=== PATIENT | female | born 1970 | race Caucasian/White ===

== ENCOUNTER 2016-11-19 07:43 | Inpatient (IN) ==
[2016-11-19] MEDS ORDERED: ATROVENT NEB INH ONE (08:21)
[2016-11-19] MEDS ORDERED: ALBUTEROL NEB INH ONE (08:21)
[2016-11-19] MEDS ORDERED: SOLU-MEDROL IV ONE (08:21)
[2016-11-19] MEDS ORDERED: DECADRON MISC ONE (08:21)
[2016-11-19 08:47] LABS: MANUAL DIFF NEEDED? NO
--- NOTE | 2016-11-19 08:49 | Diag Imaging Result Document ---
PROCEDURE NAME: CHEST-2 VIEWS - 11/19/2016 CHEST, TWO VIEWS: INDICATION: Cough. FINDINGS: There is cardiomegaly. The pulmonary vasculature is not congested. No infiltrates or effusions are identified. IMPRESSION: Cardiomegaly.
[2016-11-19 08:50] LABS: BASO% 0.6 % (0.0-0.8); EOS# 0.84 X1000 (0.0-0.7); EOS% 7.5 % (0.0-10.0); HEMATOCRIT 39.1 % (37.0-47.0); HEMOGLOBIN 12.9 g/dL (12.0-16.0); IMM GRAN# 0.07 X1000 (0.0-0.04); IMM GRAN% 0.6 % (0.0-0.5); LYMPH# 3.18 X1000 (1.2-3.4); LYMPH% 28.3 % (20.5-51.1); MCH 30.1 PG (27-31); MCV 91.1 FL (81-99); MONO# 0.72 X1000 (0.11-0.59); MONO% 6.4 % (1.7-9.3); MPV 9.8 FL (7.4-10.4); NEUT% 56.6 % (42.2-75.2); PLT 308 X1000 (130-400); RBC 4.29 XMIL (4.2-5.4)
[2016-11-19 08:53] LABS: BE 0.6 mmoll (-3.0-3.0); BLOOD TYPE ARTERIAL; O2(CT) 17.2 mL/dL (15.0-23.0); PCO2(98.6) 36 mmHg (35-45); PO2(98.6) 56 mmHg (60-100); SAMPLE BLOOD; THB 13.7 g/dL (11.5-17.4); pH(98.6) 7.44 (7.35-7.45)
--- NOTE | 2016-11-19 09:02 | PROVIDER DOCUMENTATION ---
HPI-Respiratory General - General Chief Complaint: Shortness of Breath Stated Complaint: ASTHMA SX Time Seen by Provider: 11/19/16 07:53 Source: patient Allergies/Adverse Reactions: Patient Allergies Allergy/AdvReac Type Severity Reaction Status Date / Time codeine Allergy ITCHING Verified 09/02/16 03:04 latex Allergy HIVES Verified 10/14/16 20:44 meperidine HCl * AdvReac Severe ANAPHYLAXIS Verified 09/02/16 03:04 [From Demerol] Home Medications: Home Medication List Medication Instructions Recorded Confirmed Last Taken Type LISINOpril [Prinivil] 20 mg PO QHS 04/10/13 09/03/16 09/01/16 20:00 History Metformin HCl [Metformin HCl ER] 1,000 mg PO BID 04/10/13 09/03/16 09/01/16 20: 00 History Multivitamin [Multivitamins] 1 each PO DAILY 04/10/13 09/03/16 09/01/16 08:00 History PRAVAstatin [Pravachol] 40 mg PO QHS 04/10/13 09/03/16 09/01/16 21:00 History Gabapentin 600 mg PO QHS 09/02/16 09/03/16 09/01/16 20:00 History Insulin Glargine [Lantus] 45 units SQ QHS 09/02/16 09/03/16 09/01/16 20:00 History Iron,Carbonyl [Iron] 46 mg PO DAILY 09/02/16 09/03/16 09/01/16 08:00 History Liothyronine [Cytomel] 15 mcg PO DAILY 09/02/16 09/03/16 09/01/16 20:00 History Magnesium Citrate 400 mg PO BID 09/02/16 09/03/16 09/01/16 20:00 History Albuterol Sulfate [Proair Hfa] 1 puff IH Q8H PRN 09/03/16 09/03/16 09/02/16 13: 00 History Cholecalciferol (Vitamin D3) 2,000 unit PO BID 09/03/16 09/03/16 09/01/16 13:00 History [Vitamin D3] Ibuprofen/Hydrocodone [Vicoprofen 1 each PO TID #20 tablet 09/03/16 Unknown Rx 200/7.5 mg] Levothyroxine Sodium [Synthroid] 300 mcg PO DAILY 09/03/16 09/03/16 09/01/16 06: 00 History Vitamin B Complex 1 each PO DAILY 09/03/16 09/03/16 09/01/16 13:00 History Cyclobenzaprine [Flexeril] 10 mg PO TID #20 tablet 10/14/16 Unknown Rx Ibuprofen [Motrin] 800 mg PO Q8H PRN PRN #20 tablet 10/14/16 Unknown Rx Omeprazole 20 mg PO DAILY #20 tablet. 10/14/16 Unknown Rx - History of Present Illness-Resp Nature of Presenting Problem: Pt is 46 y/o F presents to the ED with SOB. Pt states the SOB started this am. Pt states hx of asthma. Pt states mild cough and body aches. Pt denies home oxygen. Quality of Pain: reports: aching Severity in ED: reports: mild Onset/Duration: reports: this morning Timing: reports: still present, intermittent Exposure: reports: unknown cause Cough Quality/Degree: reports: mild, dry cough Episode Frequency: frequent episodes Current Respiratory Medication Therapy: Initiated see nurses note Modifying Factors: improves with: nothing Associated Symptoms: reports: cough, muscle/bodyaches (bodyaches), shortness of breath, wheezing Similar Symptoms Previously?: Yes Recently seen or treated by another doctor?: No Review of Systems - Adult - REVIEW OF SYSTEMS - ADULT Constitutional: denies: chills, fever Eyes: denies: blurred vision, double vision Ears, Nose, Mouth & Throat: denies: ear pain, nose pain, throat pain Cardiovascular: reports: irregular heart rate (tachy). denies: chest pain, heart murmur Respiratory: reports: cough, shortness of breath, wheezing Gastrointestinal: denies: abdominal pain, diarrhea, nausea, vomiting Genitourinary: denies: dysuria, hematuria Musculoskeletal: denies: bone pain, joint pain, neck pain Integumentary: denies: hives, itching Neurological: denies: dizziness/vertigo, headache/migraines Psychiatric: denies: anxiety, depression Endocrine: reports: no symptoms reported Hematologic/Lymphatic: reports: no symptoms reported Allergic/Immunologic: reports: no symptoms reported All Other Systems: Reviewed and Negative Past History - Adult - PAST MEDICAL HISTORY-ADULT Review of Records: reports: Nursing Assessment Review, Medications Reviewed, Social history reviewed & non-contributory. Major Childhood Illnesses: reports: denies history Cardiovascular: reports: HTN, hyperlipidemia Respiratory: reports: asthma, sleep apnea Gastrointestinal: reports: GERD Obstetrical/Gynecological: reports: denies history Genitourinary: reports: denies history Musculoskeletal: reports: denies history Neurological: reports: denies history Endocrine/Immune: reports: Diabetes, thyroid disorder Other Conditions: reports: denies history - PRIOR SURGERIES/PROCEDURES Surgical/Procedure History: reports: appendectomy, cholecystectomy, BTL, C- section - IMMUNIZATION STATUS Childhood Immunizations: See Nurse Assessment Flu Vaccine: See Nurse Assessment - FAMILY HISTORY Family History: reviewed, not pertinent - SOCIAL HISTORY Smoking: denies Substance Use: denies Living Situation: family Physical Exam-General - PHYSICAL EXAM-ADULT Initial Vital Signs Reviewed: Yes - CONSTITUTIONAL General Appearance: appears well, alert, no apparent distress - EYES Eyes: PERRL/EOMI, pink conjunctivae, fundi clear, no AV nicking - HEAD, EARS, NOSE, MOUTH & THROAT HENMT: normocephalic/atraumatic, moist mucous membranes, normal ENT inspection, TMs normal, pharynx normal - NECK Neck: non-tender, full range of motion, supple, normal inspection - RESPIRATORY Respiratory: chest non-tender, no pleuratic chest pain, no respiratory distress , no accessory muscle use, decreased breath sounds, wheezing - CARDIOVASCULAR Cardiovascular: normal peripheral pulses, no edema, no gallop, no JVD, no murmur , tachycardia - GASTROINTESTINAL (ABDOMEN) Abdominal Exam: normal bowel sounds, non tender, soft, no organomegaly, no pulsatile mass - LYMPHATIC Lymphatic: no adenopathy - MUSCULOSKELETAL Back Exam: normal inspection, no CVA tenderness, no vertebral tenderness Extremity: normal range of motion, non-tender, normal gait, normal inspection, no pedal edema, no calf tenderness, normal capillary refill, pelvis stable - SKIN Integumentary: normal color, normal turgor, warm/dry - NEUROLOGIC Neurologic: photograph developer II-XII nml as tested, grossly normal, no motor/sensory deficits - PSYCHIATRIC Psych/Mental Status: normal mood/affect, normal thought content, normal thought process, oriented x 3 Progress - PLAN OF CARE/RESULTS Progress/Plan/Lab Results: Laboratory Tests 11/19/16 11/19/16 11/19/16 07:50 08:37 08:40 WBC RBC Hgb Hct MCV MCH MCHC RDW Std Deviation Plt Count MPV Immature Gran % (Auto) Neut % (Auto) Lymph % (Auto) [place] % (Auto) Eos % (Auto) Baso % (Auto) Immature Gran # (Auto) Neut # (Auto) Lymph # (Auto) [place] # (Auto) Eos # (Auto) Baso # (Auto) PT INR APTT (Factor Assay) D-Dimer Specimen Type ARTERIAL Sample Site R RADIAL pH 7.44 pCO2 36 pO2 56 L HCO3 25.2 Base Excess 0.6 Oxyhemoglobin 89.5 L* ABG O2 Sat (Calculated) 17.2 ABG O2 Saturation 92.0 L ABG Carboxyhemoglobin 1.80 ABG Methemoglobin 1.0 Julien Test YES A-a O2 Difference 49.0 Total Hemoglobin 13.7 Lactate 3.10 H Blood Gas Modality ROOM AIR FiO2 % 21.0 Sodium 133 L Potassium 3.9 Chloride 95 L Carbon Dioxide 24 L Anion Gap 14 BUN 10 Creatinine 0.7 Estimated GFR/1.73 m2 > 60 BUN/Creatinine Ratio 14 Glucose 269 H Calculated Osmolality 275 Calcium 9.5 Magnesium 1.8 Total Bilirubin 0.30 AST 14 ALT 19 Alkaline Phosphatase 68 Creatine Kinase 79 Total Protein 7.1 Albumin 3.8 Globulin 3.0 Albumin/Globulin Ratio 1.0 Influenza A (Rapid) NEGATIVE Influenza B (Rapid) NEGATIVE 11/19/16 11/19/16 08:40 08:40 WBC 11.24 H RBC 4.29 Hgb 12.9 Hct 39.1 MCV 91.1 MCH 30.1 MCHC 33.0 RDW Std Deviation 13.2 Plt Count 308 MPV 9.8 Immature Gran % (Auto) 0.6 H Neut % (Auto) 56.6 Lymph % (Auto) 28.3 [place] % (Auto) 6.4 Eos % (Auto) 7.5 Baso % (Auto) 0.6 Immature Gran # (Auto) 0.07 H Neut # (Auto) 6.36 Lymph # (Auto) 3.18 [place] # (Auto) 0.72 H Eos # (Auto) 0.84 H Baso # (Auto) 0.07 PT 12.8 INR 0.93 APTT (Factor Assay) 26.8 D-Dimer < 0.22 L Specimen Type Sample Site pH pCO2 pO2 HCO3 Base Excess Oxyhemoglobin ABG O2 Sat (Calculated) ABG O2 Saturation ABG Carboxyhemoglobin ABG Methemoglobin Julien Test A-a O2 Difference Total Hemoglobin Lactate Blood Gas Modality FiO2 % Sodium Potassium Chloride Carbon Dioxide Anion Gap BUN Creatinine Estimated GFR/1.73 m2 BUN/Creatinine Ratio Glucose Calculated Osmolality Calcium Magnesium Total Bilirubin AST ALT Alkaline Phosphatase Creatine Kinase Total Protein Albumin Globulin Albumin/Globulin Ratio Influenza A (Rapid) Influenza B (Rapid) Orders Category Date Time Status Cardiac Monitoring DIRECTED Care 11/19/16 08:21 Active Oxygen Therapy- ED Nursing DIRECTED Care 11/19/16 08:21 Active Saline Loc NOW Care 11/19/16 08:21 Active CHEST-2 VIEWS [RAD] Stat Exams 11/19/16 07:54 Draft ABG [RESP] Routine Lab 11/19/16 08:37 Completed BLOOD CULTURE [BLDCUL] Stat Lab 11/19/16 08:21 Ordered CBC WITH ELECTRONIC DIFF [HEME] Stat Lab 11/19/16 08:40 Completed CK PROFILE [SP CHEM] Stat Lab 11/19/16 08:40 Completed COMPREHENSIVE METABOLIC PANEL [CHEM] Stat Lab 11/19/16 08:[address] D-D[address]ER [address] [COAG] Stat Lab 11/19/16 08:[address] Stat Lab 11/19/16 07:50 Completed LACTATE, PLASMA [CHEM] Stat Lab 11/19/16 08:40 Received MAGNESIUM [CHEM] Stat Lab 11/19/16 08:40 Completed PRO B-NATRIURETIC PEPTIDE Stat Lab 11/19/16 08:40 Received PROTIME WITH INR PL [COAG] Stat Lab 11/19/16 08:[address] [COAG] Stat Lab 11/19/16 08:40 Completed TROPONIN T Stat Lab 11/19/16 08:40 Received Albuterol Neb Med 11/19/16 08:21 Discontinued 2.5 mg INH NOW ONE Dexamethasone [Decadron] Med 11/19/16 08:21 Discontinued 4 mg MISC NOW ONE Ipratropium [place] Neb [Atrovent Neb] Med 11/19/16 08:21 Discontinued 0.5 mg INH NOW ONE Methylprednisolone Sod Succ [Solu-Medrol] Med 11/19/16 08:21 Discontinued 125 mg IV NOW ONE Aerosol Treatments Routine Oth 11/19/16 08:23 Completed Aerosol Treatments Stat Oth 11/19/16 08:23 Completed Vital Signs - 24 hr 11/19/16 11/19/16 07:45 09:06 Temperature 98 F Pulse Rate 108 H 106 H Respiratory 22 22 Rate Blood Pressure 171/90 O2 Sat by Pulse 94 L 92 L Oximetry - XRAY 1 XRAY: Bilateral XRAY Study: Chest Impression: Abnormal XRAY Interpretation: CM - CONSULTS/PCP/HOSPITALIST Notification #1 *Consult/PCP/Hospitalist*: Dr. Melgoza Time Discussed: 10:35 (Dr. Melgoza accepted admit ) Reason/Comments: Dr. Cuba consults with Dr. Melgoza about admit of Pt Consult Disposition: Admit Departure - Departure Time of Disposition Order: 10:17 DIAGNOSIS: COPD exacerbation, Hypoxia Disposition: ADMITTED INPATIENT 09 Certified Medical Emergency: Emergent Condition: Stable Additional Instructions: ED Follow Up Instructions: You have been treated by a care provider in the Emergency Department. These instructions are being provided to you so you can have an understanding of how to care for yourself upon discharge. Upon discharge from the Emergency Department, you are responsible for making arrangements for follow-up care by a physician of your choice. Take all prescribed medications as directed. Return to the Emergency Department immediately for any new or worsening symptoms. You may call the Physician Referral phone number at [phone] to obtain a list of Physicians who are taking new patients. Referrals: aLshay Mann MD [Primary Care Provider] - Attestation - Scribe Verification/Attestation Scribe:: Ananya Fair Acting as Scribe for:: Yael Cuba Scribe documention review:: This chart was documented by a scribe and accurately reflects the service the provider performed and the decisions made by the provider.
[2016-11-19 09:04] LABS: ALLEN TEST YES; DRAW SITE R RADIAL; MODALITY ROOM AIR
[2016-11-19 09:07] LABS: INR 0.93 (0.86-1.15); PROTIME 12.8 Seconds (12.1-15.5)
[2016-11-19 09:08] LABS: PTT PL 26.8 Seconds (22.6-43.9)
[2016-11-19 09:13] LABS: AGAP 14; ALBUMIN 3.8 g/dL (3.5-5.0); ALKALINE PHOSPHATASE 68 U/L (32-104); BUN 10 mg/dL (8-22); CALCIUM 9.5 mg/dL (8.8-10.2); CHLORIDE 95 mmol/L (98-107); CK PROFILE 79 U/L (24-173); COSMO 275; GOT 14 U/L (10-30); GPT 19 U/L (10-36); MAGNESIUM 1.8 mg/dL (1.5-2.7); POTASSIUM 3.9 mmol/L (3.5-5.1); SODIUM 133 mmol/L (136-145); TCO2 24 mmol/L (25-35); TOTAL PROTEIN 7.1 g/dL (6.3-8.3)
[2016-11-19] MEDS ORDERED: NORCO-7.5 PO ONE (10:13)
[2016-11-19] MEDS ORDERED: LEVAQUIN 750 MG/D5W 150 ML IV ONE ×2 (10:16→10:47)
[2016-11-19] MEDS ORDERED: LEVAQUIN 750 MG in NS 150 ML IV ONE (11:00)
[2016-11-19] MEDS ORDERED: ZOFRAN IV PRN (16:10)
[2016-11-19] MEDS ORDERED: DUONEB (A & A) INH PRN (16:41)
[2016-11-19] MEDS ORDERED: SOLU-MEDROL IV SCH (17:00)
[2016-11-19] MEDS: DUONEB (A & A) INH SCH ×2 (18:33→22:53)
--- NOTE | 2016-11-19 20:06 | HISTORY AND PHYSICAL ---
CHIEF COMPLAINT: Shortness of breath. HISTORY OF PRESENT ILLNESS: This is a 46-year-old female with diabetes and asthma presenting with progressive shortness of breath over the last 24-48 hours, with worsening shortness of breath this morning. She has also had a productive cough which has been very irritating and affecting her breathing. Patient reports awaking from sleep this a.m. due to shortness of breath. Patient was given Levaquin 750, [place], albuterol, Atrovent and Solu-Medrol in the ER, and has clinically improved. PROBLEM LIST: 1. She reports having flu-like symptoms about 3 weeks ago. 2. She has chest pain and difficulty with cough since she has been here. 3. Admitted for asthma exacerbation. PAST MEDICAL HISTORY: 1. Asthma. 2. Thyroid cancer. 3. Type 2 diabetes but she is insulin dependent. 4. Hypothyroidism. 5. Hypertension. 6. Dyslipidemia. 7. Hypoparathyroidism. PAST SURGICAL HISTORY: 1. Appendectomy. 2. Cholecystectomy. 3. . 4. Tubal ligation. SOCIAL HISTORY: No smoking, no ethanol, no drugs. FAMILY HISTORY: Heart disease. Cancer in her mother. ALLERGIES: Codeine, latex and Demerol. REVIEW OF SYSTEMS: Otherwise negative times 10 point review of systems. MEDICATION LIST: Being compiled. She is on Lantus 45 units daily. PHYSICAL EXAMINATION: VITAL SIGNS: Blood pressure 156/90, heart rate of 109, respiratory rate of 20, temp 98.2 degrees. GENERAL: Obese female, in no acute distress. HEAD EXAMINATION: Normocephalic, atraumatic. EYE EXAMINATION: Pupils equal, round, reactive to light. Extraocular movements were intact. EAR/NOSE/THROAT EXAMINATION: She had moist mucous membranes. NECK: Supple. CARDIOVASCULAR EXAMINATION: Regular rate and rhythm. PULMONARY: Occasional wheezing but good air movement throughout. GASTROINTESTINAL: Soft, nontender, nondistended. Bowel sounds are positive. EXTREMITIES: No clubbing or cyanosis. LYMPHATICS: No peripheral edema. NEUROLOGICAL EXAMINATION: Nonfocal. LABORATORY DATA: Chest x-ray was unremarkable. White count 11. Chemistry unremarkable except sugars have been 269 to 311 to 454. Blood gas . Flu was negative. PROBLEM LIST: 1. Asthma exacerbation. We will continue empiric antibiotics, steroids, breathing treatments and follow. 2. Diabetes. We will continue her regular medications and monitor. 3. Obesity. Aware of current issues. 4. Hypertension. Continue regular medications. DISPOSITION: I would anticipate discharge in 2 days.
[2016-11-19] MEDS ORDERED: LANTUS INSULIN (PARKWAY) SUBQ SCH (21:00)
[2016-11-19] MEDS: LOVENOX SUBQ SCH (21:54)
[2016-11-19] MEDS: TUSSIONEX LIQUID PO SCH (21:55)
[2016-11-19] MEDS: HUMULIN R (PARKWAY) SUBQ SCH (21:55)
[2016-11-19] MEDS: TYLENOL PO PRN (23:47)
[2016-11-20] MEDS: SOLU-MEDROL IV SCH ×3 (01:01→21:18)
[2016-11-20] MEDS: DUONEB (A & A) INH SCH ×6 (04:35→23:45)
[2016-11-20] MEDS: PRILOSEC PO SCH (06:02)
[2016-11-20] MEDS: HUMULIN R (PARKWAY) SUBQ SCH ×4 (06:03→21:18)
[2016-11-20 06:10] LABS: HEMATOCRIT 40.1 % (37.0-47.0); HEMOGLOBIN 13.1 g/dL (12.0-16.0); MCH 29.4 PG (27-31); MCHC 32.7 g/dL (33-37); MCV 89.9 FL (81-99); MPV 10.5 FL (7.4-10.4); RBC 4.46 XMIL (4.2-5.4)
[2016-11-20 06:37] LABS: AGAP 14; BUN 14 mg/dL (8-22); CALCIUM 10.8 mg/dL (8.8-10.2); CHLORIDE 98 mmol/L (98-107); COSMO 285; HEMOGLOBIN A1C 8.5 % (4.8-6.0); POTASSIUM 4.8 mmol/L (3.5-5.1); SODIUM 135 mmol/L (136-145); TCO2 23 mmol/L (25-35)
[2016-11-20] MEDS ORDERED: PNEUMOVAX 23 IM ONE (09:00)
[2016-11-20] MEDS ORDERED: FLUZONE QUAD 2016-2017 SYRINGE IM ONE (09:00)
[2016-11-20] MEDS: TUSSIONEX LIQUID PO SCH ×2 (10:18→21:18)
[2016-11-20] MEDS: LEVAQUIN 750 MG in NS 150 ML IV SCH (10:22)
--- NOTE | 2016-11-20 15:07 | PROGRESS NOTE ---
DATE: 11/20/2016 SUBJECTIVE: The patient has no focal complaints. Breathing is improved. OBJECTIVE: Vital Signs: Blood pressure 139/89, heart rate of 87, respiratory rate 18, temperature 97.5 degrees, satting 97% on 2 L. Cardiovascular: Regular rate and rhythm. Pulmonary: Bilateral breath sounds. Clear to auscultation. GI: Soft, nontender, nondistended. Bowel sounds are positive. LABORATORY DATA: White count 11.5, hemoglobin and hematocrit 13 and 40. Platelets 345. Chemistries look okay. Sugars are still up from 276 up to 457. A1c is 8.5. PROBLEM LIST: 1. Asthma exacerbation. She is currently on steroids, antibiotics and breathing treatments, and seems to be doing fairly well. I think I am going to decrease her steroids because of her relative hyperglycemia and follow clinically. I think she has improved. Probably anticipate discharge tomorrow barring any major issues. 2. Diabetes, not well controlled, but we are decreasing steroids. We have gone up on her Lantus. Will follow. DISPOSITION: As described. Home tomorrow if stable.
[2016-11-20] MEDS ORDERED: HUMULIN R IV ONE (16:01)
[2016-11-20] MEDS ORDERED: HUMULIN R (PARKWAY) IV ONE (16:30)
[2016-11-20] MEDS: TYLENOL PO PRN (18:25)
[2016-11-20] MEDS: LANTUS INSULIN (PARKWAY) SUBQ SCH ×2 (18:25→20:01)
[2016-11-20] MEDS: TESSALON PO PRN (19:12)
[2016-11-20] MEDS: LOVENOX SUBQ SCH (21:18)
[2016-11-21] MEDS: DUONEB (A & A) INH SCH ×6 (03:35→23:23)
[2016-11-21] MEDS: PRILOSEC PO SCH (06:33)
[2016-11-21 06:46] LABS: HEMATOCRIT 37.3 % (37.0-47.0); HEMOGLOBIN 11.9 g/dL (12.0-16.0); MCH 29.6 PG (27-31); MCHC 31.9 g/dL (33-37); MCV 92.8 FL (81-99); RBC 4.02 XMIL (4.2-5.4)
[2016-11-21 06:47] LABS: AGAP 15; BUN 25 mg/dL (8-22); CALCIUM 9.6 mg/dL (8.8-10.2); CHLORIDE 98 mmol/L (98-107); COSMO 295; POTASSIUM 4.9 mmol/L (3.5-5.1); SODIUM 135 mmol/L (136-145); TCO2 22 mmol/L (25-35)
[2016-11-21] MEDS: HUMULIN R (PARKWAY) SUBQ SCH ×2 (07:01→19:38)
[2016-11-21] MEDS: TESSALON PO PRN (08:12)
[2016-11-21] MEDS: TUSSIONEX LIQUID PO SCH ×2 (09:26→20:34)
[2016-11-21] MEDS: SOLU-MEDROL IV SCH (09:27)
[2016-11-21] MEDS: LEVAQUIN 750 MG in NS 150 ML IV SCH (10:03)
--- NOTE | 2016-11-21 16:21 | PROGRESS NOTE ---
DATE: 11/21/2016 SUBJECTIVE: Patient has no focal complaints. Her coughing has improved, breathing has improved. OBJECTIVE: Vital Signs: Blood pressure 124/64, heart rate of 102, respiratory rate 20, Temperature 98.3 degrees, 96% on 1 L. Cardiovascular: Regular rate and rhythm. Pulmonary: Bilateral breath sounds. Clear to auscultation. GI: Soft, nontender, nondistended. Bowel sounds are positive. LABORATORY DATA: White count is 13 today, hemoglobin and hematocrit 11 and 37, platelets of 335,000. Chemistries: Blood sugar is still very high, 282 up to 472. PROBLEM LIST: 1. Asthma exacerbation. I am going to stop her steroids, continue breathing treatments, and follow clinically. Her wheezing has essentially resolved. We will continue treatment and follow. 2. Diabetes, uncontrolled. Will go up on her Lantus to 80 at bedtime, continue her sliding scale insulin, and follow. 3. Hypertension. Appears to be stable. Continue regular medication. DISPOSITION: From a respiratory standpoint, I think she could probably go tomorrow, but her breathing treatments we will continue to follow and possibly discharge soon.
[2016-11-21] MEDS: HUMALOG DOSE (PARKWAY) SUBQ SCH ×2 (18:25→20:44)
[2016-11-21] MEDS ORDERED: NS 500 ML IV SCH (19:15)
[2016-11-21] MEDS: LOVENOX SUBQ SCH (20:34)
[2016-11-21] MEDS ORDERED: LANTUS INSULIN (PARKWAY) SUBQ SCH (21:00)
[2016-11-22] MEDS: DUONEB (A & A) INH SCH ×4 (03:23→17:43)
[2016-11-22] MEDS: PRILOSEC PO SCH (06:02)
[2016-11-22] MEDS: HUMALOG DOSE (PARKWAY) SUBQ SCH ×2 (06:03→13:07)
[2016-11-22 06:38] LABS: HEMATOCRIT 38.7 % (37.0-47.0); HEMOGLOBIN 12.3 g/dL (12.0-16.0); MCH 29.6 PG (27-31); MCHC 31.8 g/dL (33-37); MCV 93.3 FL (81-99); MPV 10.3 FL (7.4-10.4); RBC 4.15 XMIL (4.2-5.4)
[2016-11-22 06:58] LABS: AGAP 14; BUN 21 mg/dL (8-22); CALCIUM 9.3 mg/dL (8.8-10.2); CHLORIDE 100 mmol/L (98-107); COSMO 286; POTASSIUM 3.6 mmol/L (3.5-5.1); SODIUM 140 mmol/L (136-145); TCO2 26 mmol/L (25-35)
[2016-11-22] MEDS: TUSSIONEX LIQUID PO SCH (08:48)
[2016-11-22] MEDS: LEVAQUIN 750 MG in NS 150 ML IV SCH (13:14)
[2016-11-22] MEDS ORDERED: LEVAQUIN PO ONE (16:10)
[2016-11-22 16:54] VITALS: BP 154/82
--- NOTE | 2016-11-22 18:28 | DISCHARGE SUMMARY ---
ADMISSION DATE: 11/19/2016 DISCHARGE DATE: 11/22/2016 DISCHARGE DIAGNOSES: 1. Asthma exacerbation. 2. Profound hypothyroidism with poor compliance on Synthroid. 3. History of thyroid cancer interestingly enough. 4. Diabetes. 5. Obesity. HOSPITAL COURSE: Briefly this is a 46-year-old female, please note H and P on admission, coming in with shortness of breath and cough. Chest x-ray was clear. She was asthmatic and bronchospastic. She was placed on IV steroids, antibiotics in the form of Levaquin, breathing treatments and steadily clinically improved, we were able to wean her off oxygen. She had profound hyperglycemia with blood sugars 200-400 so once her wheezing had resolved which was by day 2 we stopped her steroids. White count peaked at 13,000, is 11.7 at discharge. Of note her TSH is 47 but the nurse who evaluated her home medications found out that she had not filled her Synthroid since May of last year so I do not think she has been taking it and not been compliant with it. She is on a 300 mcg dose but she has not been compliant with the medication reportedly due to cost. We informed her her metformin and Pravachol, lisinopril, gabapentin, all those were on the 4 dollar list at [facility]. Lisinopril and metformin are free at [facility]. Synthroid is also a 4 dollar medication at [facility]. In any case patient is stable. She stabilized by the day of discharge, no wheezing. She was breathing comfortably on room air. No fevers so I felt stable for discharge on the 4th. DISCHARGE MEDICATIONS: Metformin 1 g b.i.d., multivitamin 1 daily, Pravachol 40 daily, lisinopril 20 daily, ProAir, vitamin D3, gabapentin 600 at bedtime, magnesium citrate 400 b.i.d., vitamin B complex daily, Icar-C 60 daily or Carbonyl iron 60 daily, Lantus was increased to 65 units daily, Levaquin 500 daily for 7 days and Synthroid was dropped to 250 because I do not think she has been compliant with her medications. DISCHARGE CONDITION: Stable. 32-minute discharge. She was to return for worsening shortness of breath. She will need follow up TFTs (thyroid function tests) in 4-6 weeks.
== END 2016-11-22 17:59 | disposition home or self-care (01) | DRG 203 ==
LOC: P.ED 07:43 → P.EDIPHOLD 07:44 → P.MEDSURG 07:44
PROVIDERS: ATTEND Internal Medicine
DX: J45.901 Unspecified asthma with (acute) exacerbation (principal); E11.42 Type 2 diabetes mellitus with diabetic polyneuropathy; E11.65 Type 2 diabetes mellitus with hyperglycemia; I10 Essential (primary) hypertension; E03.9 Hypothyroidism, unspecified; T38.1X6A Underdosing of thyroid hormones and substitutes, initial encounter; Z91.120 Patient's intentional underdosing of medication regimen due to financial hardship; Z85.850 Personal history of malignant neoplasm of thyroid; Z79.4 Long term (current) use of insulin; E20.9 Hypoparathyroidism, unspecified; Z80.9 Family history of malignant neoplasm, unspecified; E66.9 Obesity, unspecified; E78.00 Pure hypercholesterolemia, unspecified; R09.02 Hypoxemia
CPT/HCPCS: 36415; 71020; 80048; 80053; 82550; 82805; 82948; 83036; 83605; 83735; 83880; 84439; 84443; 84484; 85025; 85027; 85379; 85610; 85730; 87040; 87070; 87205; 87804; 94640; 94761; 96365; 96366; 96375; J1100; J1650; J1815; J2920; J2930; J7040

== ENCOUNTER 2016-12-09 15:27 | Emergency (ER) ==
[2016-12-09] MEDS ORDERED: TESSALON PO ONE (16:21)
[2016-12-09] MEDS ORDERED: DUONEB (A & A) INH ONE (16:21)
[2016-12-09 17:00] LABS: MANUAL DIFF NEEDED? NO
--- NOTE | 2016-12-09 17:05 | Diag Imaging Result Document ---
PROCEDURE NAME: CHEST-2 VIEWS - 12/09/2016 FRONTAL AND LATERAL CHEST, TWO VIEWS: COMPARISON: 11/19/2016. FINDINGS: The lungs are well expanded. The heart is not enlarged. The vessels are not distended. No pneumonia. No pleural effusions. IMPRESSION: No acute abnormality.
[2016-12-09 17:09] LABS: BASO% 1.4 % (0.0-0.8); EOS# 0.72 X1000 (0.0-0.7); HEMATOCRIT 40.9 % (37.0-47.0); HEMOGLOBIN 13.4 g/dL (12.0-16.0); IMM GRAN# 0.04 X1000 (0.0-0.04); IMM GRAN% 0.4 % (0.0-0.5); LYMPH# 3.48 X1000 (1.2-3.4); LYMPH% 38.7 % (20.5-51.1); MCH 29.6 PG (27-31); MCHC 32.8 g/dL (33-37); MCV 90.3 FL (81-99); MONO% 8.9 % (1.7-9.3); NEUT% 42.6 % (42.2-75.2); PLT 332 X1000 (130-400); RBC 4.53 XMIL (4.2-5.4)
[2016-12-09 17:40] LABS: AGAP 17; ALKALINE PHOSPHATASE 57 U/L (32-104); BUN 9 mg/dL (8-22); CALCIUM 9.3 mg/dL (8.8-10.2); CHLORIDE 100 mmol/L (98-107); COSMO 279; GOT 23 U/L (10-30); GPT 30 U/L (10-36); POTASSIUM 4.2 mmol/L (3.5-5.1); SODIUM 136 mmol/L (136-145); TCO2 20 mmol/L (25-35); TOTAL PROTEIN 6.9 g/dL (6.3-8.3)
--- NOTE | 2016-12-09 18:17 | PROVIDER DOCUMENTATION ---
HPI-Respiratory General - General Chief Complaint: Shortness of Breath Stated Complaint: ASTHMA SX Time Seen by Provider: 12/09/16 16:01 Source: patient Allergies/Adverse Reactions: Patient Allergies Allergy/AdvReac Type Severity Reaction Status Date / Time codeine Allergy ITCHING Verified 12/09/16 15:58 latex Allergy HIVES Verified 12/09/16 15:58 meperidine HCl * AdvReac Severe ANAPHYLAXIS Verified 12/09/16 15:58 [From Demerol] fire ant AdvReac SHORTNESS Verified 12/09/16 15:58 OF BREATH Home Medications: Home Medication List Medication Instructions Recorded Confirmed Last Taken Type LISINOpril [Prinivil] 20 mg PO QHS 04/10/13 12/09/16 09/01/16 20:00 History Metformin HCl [Metformin HCl ER] 1,000 mg PO BID 04/10/13 12/09/16 09/01/16 20: 00 History Multivitamin [Multivitamins] 1 each PO DAILY 04/10/13 12/09/16 09/01/16 08:00 History PRAVAstatin [Pravachol] 40 mg PO QHS 04/10/13 12/09/16 09/01/16 21:00 History Gabapentin 600 mg PO QHS 09/02/16 12/09/16 09/01/16 20:00 History Magnesium Citrate 400 mg PO BID 09/02/16 12/09/16 09/01/16 20:00 History Albuterol Sulfate [Proair Hfa] 2 puff IH Q8H PRN 09/03/16 12/09/16 09/02/16 13: 00 History Cholecalciferol (Vitamin D3) 4,000 unit PO BID 09/03/16 12/09/16 09/01/16 13:00 History [Vitamin D3] Vitamin B Complex 1 each PO DAILY 09/03/16 12/09/16 09/01/16 13:00 History Insulin Glargine [Lantus] 65 units SQ QHS #1 insuln.pen 11/22/16 12/09/16 Unknown Rx Iron,Carbonyl [Carbonyl Iron] 60 mg PO DAILY 11/22/16 12/09/16 Unknown History Levothyroxine Sodium [Synthroid] 250 mcg PO DAILY #30 11/22/16 12/09/16 06:00 Rx Albuterol Sulfate [Albuterol 8.5 gm IH Q4-6H PRN PRN #1 12/09/16 Unknown Rx Sulfate Hfa] hfa.aer.ad Guaifenesin/D-Methorphan Hb/PE 1 each PO Q6-8H PRN PRN #14 tablet 12/09/16 Unknown Rx [Deconex Dmx Tablet] - History of Present Illness-Resp Nature of Presenting Problem: This pt, who has a hx of asthma and recent pneumonia, presents today c complaints of asthma exacerbation. She reports that she has used her inhaler several times today and still has shortness of breath and a cough. She is concerned that she "may have pneumonia again." She denies any fever, chills, n/v /d. No other issues or complaints. Severity in ED: reports: mild Onset/Duration: reports: 24 hours ago Timing: reports: still present Context: reports: recent URI Cough Quality/Degree: reports: moderate, dry cough Episode Frequency: occasional episodes Current Respiratory Medication Therapy: Initiated albuterol/atrovent inhale Modifying Factors: improves with: nothing Associated Symptoms: reports: cough, shortness of breath, wheezing Similar Symptoms Previously?: Yes Recently seen or treated by another doctor?: Yes Review of Systems - Adult - REVIEW OF SYSTEMS - ADULT Constitutional: reports: no symptoms reported. denies: chills, fatique Eyes: reports: no symptoms reported. denies: discharge, dry eyes Ears, Nose, Mouth & Throat: reports: other (yeast infection). denies: sinus problem, nose pain Cardiovascular: reports: no symptoms reported. denies: chest pain, edema Respiratory: reports: cough, shortness of breath, wheezing. denies: hemoptysis , pleurisy Gastrointestinal: reports: no symptoms reported. denies: abdominal pain, hematemesis Genitourinary: reports: no symptoms reported. denies: dysuria, discharge Musculoskeletal: reports: no symptoms reported. denies: bone pain, back pain Integumentary: reports: no symptoms reported. denies: hives, hair loss Neurological: reports: no symptoms reported. denies: ataxia, dizziness/vertigo Psychiatric: reports: no symptoms reported. denies: anxiety, anti-depressant use Endocrine: reports: no symptoms reported Hematologic/Lymphatic: reports: no symptoms reported Allergic/Immunologic: reports: no symptoms reported All Other Systems: Reviewed and Negative Past History - Adult - PAST MEDICAL HISTORY-ADULT Review of Records: reports: Old Records Reviewed, Nursing Assessment Review, Medications Reviewed, Social history reviewed & non-contributory. Major Childhood Illnesses: reports: denies history Cardiovascular: reports: HTN, hyperlipidemia Respiratory: reports: asthma, sleep apnea Gastrointestinal: reports: GERD Obstetrical/Gynecological: reports: denies history Genitourinary: reports: denies history Musculoskeletal: reports: denies history Neurological: reports: denies history Endocrine/Immune: reports: Diabetes, thyroid disorder Other Conditions: reports: denies history - PRIOR SURGERIES/PROCEDURES Surgical/Procedure History: reports: appendectomy, cholecystectomy, BTL, C- section - IMMUNIZATION STATUS Childhood Immunizations: See Nurse Assessment Flu Vaccine: See Nurse Assessment - FAMILY HISTORY Family History: reviewed, not pertinent Physical Exam-General - PHYSICAL EXAM-ADULT Initial Vital Signs Reviewed: Yes - CONSTITUTIONAL General Appearance: appears well, alert, no apparent distress - EYES Eyes: PERRL/EOMI, pink conjunctivae - HEAD, EARS, NOSE, MOUTH & THROAT HENMT: other (yeast infection) - NECK Neck: non-tender, full range of motion, supple, normal inspection - RESPIRATORY Respiratory: chest non-tender, no pleuratic chest pain, no respiratory distress , no accessory muscle use, wheezing (minimal; posterior). negative: respiratory distress, decreased breath sounds, accessory muscle use, crackles, rales, rhonchi, stridor, decreased rate, increased rate - CARDIOVASCULAR Cardiovascular: normal peripheral pulses, tachycardia. negative: regular rate, rhythm, bradycardia - GASTROINTESTINAL (ABDOMEN) Abdominal Exam: normal bowel sounds, non tender, soft - MUSCULOSKELETAL Back Exam: normal inspection Extremity: normal range of motion, non-tender, normal gait, normal inspection - SKIN Integumentary: normal color, normal turgor, warm/dry. negative: cyanosis, diaphoresis, pallor - NEUROLOGIC Neurologic: grossly normal, no motor/sensory deficits. negative: facial droop, motor weakness, sensory deficit Progress - PLAN OF CARE/RESULTS Progress/Plan/Lab Results: Laboratory Tests 12/09/16 12/09/16 16:55 16:55 WBC 9.00 RBC 4.53 Hgb 13.4 Hct 40.9 MCV 90.3 MCH 29.6 MCHC 32.8 L RDW Std Deviation 13.3 Plt Count 332 MPV 10.0 Immature Gran % (Auto) 0.4 Neut % (Auto) 42.6 Lymph % (Auto) 38.7 Kent % (Auto) 8.9 Eos % (Auto) 8.0 Baso % (Auto) 1.4 H Immature Gran # (Auto) 0.04 Neut # (Auto) 3.83 Lymph # (Auto) 3.48 H Kent # (Auto) 0.80 H Eos # (Auto) 0.72 H Baso # (Auto) 0.13 Sodium 136 Potassium 4.2 Chloride 100 Carbon Dioxide 20 L Anion Gap 17 BUN 9 Creatinine 0.6 Estimated GFR/1.73 m2 > 60 BUN/Creatinine Ratio 15 Glucose 256 H Calculated Osmolality 279 Calcium 9.3 Total Bilirubin 0.20 AST 23 ALT 30 Alkaline Phosphatase 57 Total Protein 6.9 Albumin 4.0 Globulin 3.0 Albumin/Globulin Ratio 1.0 Orders Category Date Time Status CHEST-2 VIEWS [RAD] Stat Exams 12/09/16 16:21 Draft CBC WITH DIFF [HEME] Stat Lab 12/09/16 16:55 Completed CMP [COMPREHENSIVE METABOLIC PANEL] [CHEM] Stat Lab 12/09/16 16:55 Completed Albuterol 2.5MG/Ipratrop 0.5MG [Duoneb (A & A)] Med 12/09/16 16:21 Discontinued 3 ml INH NOW ONE Benzonatate [Tessalon] Med 12/09/16 16:21 Discontinued 200 mg PO NOW ONE Aerosol Treatments Routine Oth 12/09/16 16:21 Completed Aerosol Treatments Stat Oth 12/09/16 16:21 Completed Vital Signs Temp Pulse Resp BP Pulse Ox 12/09/16 16:36 89 26 H 12/09/16 15:55 98.9 F 120 H 20 134/099 96 codeine Allergy (Verified 12/09/16 15:58) ITCHING latex Allergy (Verified 12/09/16 15:58) HIVES meperidine HCl * [From Demerol] Adverse Reaction (Severe, Verified 12/09/16 15: 58) ANAPHYLAXIS RESP. DISTRESS fire ant Adverse Reaction (Verified 12/09/16 15:58) SHORTNESS OF BREATH LISINOpril [Prinivil] 20 mg PO QHS 04/10/13 Metformin HCl [Metformin HCl ER] 1,000 mg PO BID 04/10/13 Multivitamin [Multivitamins] 1 each PO DAILY 04/10/13 PRAVAstatin [Pravachol] 40 mg PO QHS 04/10/13 Gabapentin 600 mg PO QHS 09/02/16 Magnesium Citrate 400 mg PO BID 09/02/16 Albuterol Sulfate [Proair Hfa] 2 puff IH Q8H PRN 09/03/16 Cholecalciferol (Vitamin D3) [Vitamin D3] 4,000 unit PO BID 09/03/16 Vitamin B Complex 1 each PO DAILY 09/03/16 Insulin Glargine [Lantus] 65 units SQ QHS #1 insuln.pen 11/22/16 Iron,Carbonyl [Carbonyl Iron] 60 mg PO DAILY 11/22/16 Levothyroxine Sodium [Synthroid] 250 mcg PO DAILY #30 11/22/16 Laboratory 12/09/16 12/09/16 16:55 16:55 WBC 9.00 RBC 4.53 Hgb 13.4 Hct 40.9 MCV 90.3 MCH 29.6 MCHC 32.8 L RDW Std Deviation 13.3 Plt Count 332 MPV 10.0 Immature Gran % (Auto) 0.4 Neut % (Auto) 42.6 Lymph % (Auto) 38.7 Kent % (Auto) 8.9 Eos % (Auto) 8.0 Baso % (Auto) 1.4 H Immature Gran # (Auto) 0.04 Neut # (Auto) 3.83 Lymph # (Auto) 3.48 H Kent # (Auto) 0.80 H Eos # (Auto) 0.72 H Baso # (Auto) 0.13 Sodium 136 Potassium 4.2 Chloride 100 Carbon Dioxide 20 L Anion Gap 17 BUN 9 Creatinine 0.6 Estimated GFR/1.73 m2 > 60 BUN/Creatinine Ratio 15 Glucose 256 H Calculated Osmolality 279 Calcium 9.3 Total Bilirubin 0.20 AST 23 ALT 30 Alkaline Phosphatase 57 Total Protein 6.9 Albumin 4.0 Globulin 3.0 Albumin/Globulin Ratio 1.0 Pt is feeling better. She is requesting a referral to a carbonation equipment tender. Will d/c home. - XRAY 1 XRAY Study: Chest XRAY Interpretation: nad Departure - Departure Time of Disposition Order: 18:14 DIAGNOSIS: Asthma exacerbation, Oral candidiasis Disposition: HOME 01 Certified Medical Emergency: Emergent Condition: Good Additional Instructions: Take medication as prescribed. Follow up with a carbonation equipment tender. Return to the ER for any new or worsening symptoms. ED Follow Up Instructions: You have been treated by a care provider in the Emergency Department. These instructions are being provided to you so you can have an understanding of how to care for yourself upon discharge. Upon discharge from the Emergency Department, you are responsible for making arrangements for follow-up care by a physician of your choice. Take all prescribed medications as directed. Return to the Emergency Department immediately for any new or worsening symptoms. You may call the Physician Referral phone number at [phone] to obtain a list of Physicians who are taking new patients. Prescriptions: Albuterol Sulfate [Albuterol Sulfate Hfa] 8.5 gm IH Q4-6H PRN PRN #1 hfa.aer.ad PRN Reason: Wheezing Guaifenesin/D-Methorphan Hb/PE [Deconex Dmx Tablet] 1 each PO Q6-8H PRN PRN #14 tablet PRN Reason: Cough and congestion Referrals: Lashay Mann MD [Primary Care Provider] - Chuy Del Real MD [STAFF PHYSICIAN] - Attestation - Physician/ ISAAC Attestation Patient care was provided by Advanced Practice Provider:: Yes Advanced Practice Provider:: Gonzalez Godfrey Advanced Practice Provider documentation review:: The Mid-level provider documentation, treatment plan and medical decision making was reviewed by the physician who agrees with all treatment and medical decision making by the P.
[2016-12-09 18:40] VITALS: BP 141/91
== END 2016-12-09 18:40 | disposition home or self-care (01) ==
LOC: P.ED 15:27
DX: J45.901 Unspecified asthma with (acute) exacerbation (principal); B37.0 Candidal stomatitis; R06.02 Shortness of breath; R05 Cough; R06.2 Wheezing; I10 Essential (primary) hypertension; E78.5 Hyperlipidemia, unspecified; K21.9 Gastro-esophageal reflux disease without esophagitis; E11.9 Type 2 diabetes mellitus without complications; E07.9 Disorder of thyroid, unspecified; R00.0 Tachycardia, unspecified; Z79.899 Other long term (current) drug therapy; Z79.4 Long term (current) use of insulin
CPT/HCPCS: 71020; 80053; 85025; 94640; 99283

== ENCOUNTER 2019-05-27 23:05 | Observation (INO) ==
[2019-05-27] MEDS ORDERED: NS 1,000 ML IV ONE (23:19)
--- NOTE | 2019-05-27 23:54 | PROVIDER DOCUMENTATION ---
HPI-General Adult - General Chief Complaint: High Blood Sugar Stated Complaint: DISORIENTED Time Seen by Provider: 05/27/19 23:19 Source: patient Allergies/Adverse Reactions: Patient Allergies Allergy/AdvReac Type Severity Reaction Status Date / Time codeine Allergy ITCHING Verified 04/14/19 01:50 latex Allergy HIVES Verified 04/14/19 01:50 meperidine HCl * AdvReac Severe ANAPHYLAXIS Verified 04/14/19 01:50 [From Demerol] fire ant AdvReac SHORTNESS Verified 04/14/19 01:50 OF BREATH Home Medications: Home Medication List Medication Instructions Recorded Confirmed Last Taken Type LISINOpril [Prinivil] 20 mg PO QHS 04/10/13 11/01/18 09/01/16 20:00 History Metformin HCl [Metformin ER 1,000 mg PO BID 04/10/13 11/01/18 09/01/16 20:00 History Osmotic] Albuterol Sulfate [Proair Hfa] 2 puff IH Q8H PRN 09/03/16 11/01/18 09/02/16 13:00 History Cholecalciferol (Vitamin D3) 10,000 unit PO DAILY 09/03/16 11/01/18 09/01/16 13:00 History [Vitamin D3] Vitamin B Complex 1 each PO DAILY 09/03/16 11/01/18 09/01/16 13:00 History Iron,Carbonyl [Carbonyl Iron] 60 mg PO DAILY 11/22/16 11/01/18 Unknown History ATORVAstatin [Lipitor] 40 mg PO DAILY 10/18/18 11/01/18 Unknown History Glimepiride 2 mg PO QPM 10/18/18 11/01/18 Unknown History Insulin Glargine [Lantus] 60 units SQ QAM 10/18/18 11/01/18 Unknown History Lamotrigine [Lamictal Odt] 100 mg PO HS 10/18/18 11/01/18 Unknown History Prazosin HCl 1 mg PO HS 10/18/18 11/01/18 Unknown History Temazepam [Restoril] 15 mg PO QHS 10/18/18 11/01/18 Unknown History Ascorbic Acid [Vitamin C] 2 tab PO DAILY 11/01/18 11/01/18 Unknown History Budesonide/Formoterol Fumarate 1 - 2 puff IN BID 11/01/18 11/01/18 Unknown History [Symbicort 160-4.5 Mcg Inhaler] Cephalexin [Keflex] 500 mg PO 4XDAY #30 cap 11/01/18 Unknown Rx Duloxetine HCl 60 mg PO BID 11/01/18 11/01/18 Unknown History Levothyroxine Sodium [Tirosint] 300 mcg PO QPM 11/01/18 11/01/18 Unknown History Sulfamethoxazole/Trimethoprim 1 ea PO BID #20 tab 04/14/19 Unknown Rx [Bactrim Ds Tablet] - History of Present Illness -Gen Adult Nature of Presenting Problems: 48 yr old F, with complex medical hx including DM, HTN, thyroid disease, presents today after sudden onset witnessed slurring of speech, disorientation, development of generalized body weakness. She is accompanied by her . He states that up until 10:50PM this even, the pt was at her normal baseline, alert, oriented. He state that at around 10:50PM, the pt began to complain that she did not feel, well, and shortly thereafter, he noted her speech was slurred, and she was no longer "with it". She began to talk about seeing her mother (who 3 yrs ago), and her daughter (who lives in another state). The did not notice any facial droop or asymmetry, localized weakness in any extremity. Location of Pain/Injury: reports: generalized Onset/Duration: reports: just prior to arrival Timing: reports: still present Context/Activities at Onset: reports: none Associated Symptoms: reports: malaise, weakness - Diabetes Related Context Context: reports: high blood sugar, change in mental status, prior DKA hospitalization Review of Systems - Adult - REVIEW OF SYSTEMS - ADULT ROS:: ROS per family Constitutional: reports: fatique Eyes: reports: no symptoms reported Ears, Nose, Mouth & Throat: reports: no symptoms reported Cardiovascular: reports: no symptoms reported Respiratory: reports: no symptoms reported Gastrointestinal: reports: nausea Genitourinary: reports: no symptoms reported Musculoskeletal: reports: muscle weakness Neurological: reports: slurred speech Past History - Adult - PAST MEDICAL HISTORY-ADULT Review of Records: reports: Nursing Assessment Review Major Childhood Illnesses: reports: denies history Cardiovascular: reports: arrhythmia, HTN, hyperlipidemia Respiratory: reports: asthma, sleep apnea Gastrointestinal: reports: GERD Obstetrical/Gynecological: reports: denies history Genitourinary: reports: denies history Musculoskeletal: reports: denies history Neurological: reports: denies history Endocrine/Immune: reports: Diabetes, thyroid disorder Other Conditions: reports: denies history - PRIOR SURGERIES/PROCEDURES Surgical/Procedure History: reports: appendectomy, cholecystectomy, hysterectomy , BTL, - IMMUNIZATION STATUS Childhood Immunizations: See Nurse Assessment Flu Vaccine: See Nurse Assessment - FAMILY HISTORY Family History: reviewed, not pertinent Physical Exam-General - PHYSICAL EXAM-ADULT Initial Vital Signs Reviewed: Yes - CONSTITUTIONAL General Appearance: lethargic - EYES Eyes: PERRL/EOMI - HEAD, EARS, NOSE, MOUTH & THROAT HENMT: normocephalic/atraumatic - RESPIRATORY Respiratory: lungs clear, normal breath sounds - CARDIOVASCULAR Cardiovascular: tachycardia - GASTROINTESTINAL (ABDOMEN) Abdominal Exam: normal bowel sounds, non tender, soft - MUSCULOSKELETAL Peripheral Pulses: dorsalis-pedis (R): 1+, dorsalis-pedis (L): 1+ - SKIN Integumentary: diaphoresis - NEUROLOGIC Neurologic: no motor/sensory deficits. negative: facial droop, focal weakness - PSYCHIATRIC Psych/Mental Status: other (oriented to self, not place or time) Progress - PLAN OF CARE/RESULTS Progress/Plan/Lab Results: Vital Signs - 8 hr 05/27/19 23:08 Temperature 98.5 F Pulse Rate 109 H Respiratory Rate 20 Blood Pressure 163/95 O2 Sat by Pulse Oximetry 95 Laboratory Results - last 24 hr 05/27/19 23:12 POC Glucose 500 H D Orders Category Date Time Status CT HEAD W/O CONTRAST [CT] Stat Exams 05/27/19 23:27 Taken ACETONE SERUM [CHEM] Stat Lab 05/27/19 23:20 Uncollected BLOOD CULTURE [BLDCUL] Stat Lab 05/27/19 23:20 Uncollected CBC WITH ELECTRONIC DIFF [HEME] Stat Lab 05/27/19 23:19 Uncollected CK PROFILE [SP CHEM] Stat Lab 05/27/19 23:20 Uncollected COMPREHENSIVE METABOLIC PANEL [CHEM] Stat Lab 05/27/19 23:19 Uncollected LACTATE, PLASMA [CHEM] Lab 05/27/19 23:30 Uncollected LACTATE, PLASMA [CHEM] Lab 05/28/19 02:30 Uncollected TROPONIN T Stat Lab 05/27/19 23:20 Uncollected URINALYSIS W/POSS RFLX CULT [URINALYSIS] Stat Lab 05/27/19 23:20 Uncollected 0.9% Sodium Chloride Inj [Ns] 1,000 ml Med 05/27/19 23:19 Active IV 999 mls/hr EKG [EKG] Stat Ther 05/27/19 23:20 Ordered Elevated serum glucose 764, AG 22. Updated pt and at bedside. Result Diagrams: 05/28/19 00:07 05/28/19 00:07 - EKG 1 Time of EKG reading by physician:: 23:45 EKG Read and Signed by:: Jeannette Vega EKG Interpretation (*Must complete 3 of following elements*): Normal Rate: 103 Rhythm: sinus tachycardia Byron: normal QRS: normal [place] Interval: normal ST Wave: normal - CT/MRI 1 CT Study: Head Impression: Normal, See EMR Report - CONSULTS/PCP/HOSPITALIST Notification #1 *Consult/PCP/Hospitalist*: Dr. Rivera Time Discussed: 01:21 Consult Disposition: Admit Departure - Departure Date of Disposition Decision: 05/28/19 Time of Disposition Decision: 01:37 DIAGNOSIS: Hyperglycemia due to type 2 diabetes mellitus Disposition: ADMITTED INPATIENT 09 Certified Medical Emergency: Emergent Condition: Serious Referrals and Follow-Ups: Lashay Mann MD [Primary Care Provider] - - Critical Care Note This patient required my direct & personal management of CC.: No Attestation - Physician/ ISAAC Attestation Patient care was provided by Advanced Practice Provider:: No The physician spent face to face time with patient:: Yes Advanced Practice Provider documentation review:: Supervising physician onsite and consulted in the evaluation and care of this patient. The physician did have a face to face encounter with the patient.
[2019-05-28 00:29] LABS: URINE SOURCE CATH
[2019-05-28 00:30] LABS: BILIRUBIN URINE NEGATIVE (NEGATIVE); BLOOD URINE NEGATIVE (NEGATIVE); COLOR STRAW; GLUCOSE URINE >1000 mg/dL (NEGATIVE); KETONE URINE 20 mg/dL (NEGATIVE); LEUKOCYTES URINE MODERATE (NEGATIVE); NITRITE URINE NEGATIVE (NEGATIVE); PH URINE 5.5; PROTEIN URINE NEGATIVE (NEGATIVE); TURBIDITY URINE CLEAR (CLEAR); UR EPITHELIAL CELLS <10 /HPF (<10); URINE BACTERIA NEGATIVE /HPF; URINE RBC <10 /HPF (<10); URINE WBC <10 /HPF (<10); UROBILINOGEN URINE NORMAL (NORMAL)
[2019-05-28 00:31] LABS: BASO% 1.4 % (0.0-0.8); EOS# 0.79 X1000 (0.0-0.7); EOS% 11.4 % (0.0-10.0); HEMATOCRIT 45.5 % (37.0-47.0); IMM GRAN# 0.02 X1000 (0.0-0.04); IMM GRAN% 0.3 % (0.0-0.5); LYMPH# 2.97 X1000 (1.2-3.4); LYMPH% 42.7 % (20.5-51.1); MCH 30.1 PG (27-31); MCV 91.4 FL (81-99); MONO# 0.52 X1000 (0.11-0.59); MONO% 7.5 % (1.7-9.3); MPV 11.8 FL (7.4-10.4); NEUT# 2.56 X1000 (1.4-6.5); NEUT% 36.7 % (42.2-75.2); PLT 273 X1000 (130-400); RBC 4.98 XMIL (4.2-5.4); RDW 13.2 % (11.5-14.5); WBC 6.96 X1000 (4.8-10.8)
[2019-05-28 00:55] LABS: ALLEN TEST YES; BE -1.7 mmoll (-3.0-3.0); BLOOD TYPE ARTERIAL; HCO3-(ACT) 23.5 mmoll (20.0-26.0); METHB 0.6 % (0.0-1.5); MODALITY ROOM AIR; O2HB 94.2 % (95.0-99.0); PCO2(98.6) 38 mmHg (35-45); PO2(98.6) 72 mmHg (60-100); SAMPLE BLOOD; SAO2 95.2 % (95.0-100.0); THB 13.6 g/dL (11.5-17.4); pH(98.6) 7.39 (7.35-7.45)
[2019-05-28] MEDS ORDERED: NS 1,000 ML IV ONE ×2 (00:56→01:49)
[2019-05-28 00:58] LABS: ACETONE SERUM NEGATIVE (NEGATIVE)
--- NOTE | 2019-05-28 00:59 | EKG Report ---
Test Performed on : 05/27/2019 11:45:13 PM Test Reason : AMS Blood Pressure : / mmHG Vent. Rate : 103 BPM Atrial Rate : 103 BPM P-R Int : 132 ms QRS Dur : 096 ms QT Int : 370 ms P-R-T Axes : 071 067 061 degrees QTc Int : 484 ms Sinus tachycardia. Otherwise normal ECG When compared with ECG of 18-OCT-2018 15:02, premature ventricular complexes. are no longer present Nonspecific T wave abnormality now evident in Inferior leads Unconfirmed Result
[2019-05-28 01:15] LABS: AGAP 22; ALB/GLOB RATIO 1.5; ALBUMIN 4.4 g/dL (3.5-5.0); ALKALINE PHOSPHATASE 92 U/L (32-104); BUN 10 mg/dL (8-22); CALCIUM 9.5 mg/dL (8.8-10.2); CHLORIDE 89 mmol/L (98-107); CK PROFILE 58 U/L (24-173); COSMO 298; CREATININE 0.8 mg/dL (0.5-0.9); ESTIMATED GFR > 60; GLUCOSE 764 mg/dL (70-104); GOT 20 U/L (10-30); GPT 29 U/L (10-36); POTASSIUM 4.6 mmol/L (3.5-5.1); SODIUM 131 mmol/L (136-145); TCO2 20 mmol/L (25-35); TOTAL BILIRUBIN 0.28 mg/dL (0.20-1.00); TOTAL PROTEIN 7.4 g/dL (6.3-8.3)
[2019-05-28 01:56] LABS: UR AMPHETAMINES QUAL NONE DETECTED (NONE DETECT); UR BARBITUATES QUAL NONE DETECTED (NONE DETECT); UR BENZODIAZEPIN QUAL NONE DETECTED (NONE DETECT); UR CANNABINOIDS QUAL NONE DETECTED (NONE DETECT); UR COCAINE QUAL NONE DETECTED (NONE DETECT); UR METHADONE QUAL NONE DETECTED (NONE DETECT); UR OPIATES QUAL NONE DETECTED (NONE DETECT); UR OXYCODONE QUAL NONE DETECTED (NONE DETECT); UR PCP QUAL NONE DETECTED (NONE DETECT)
[2019-05-28] MEDS ORDERED: HUMULIN R IV ONE (01:56)
[2019-05-28] MEDS ORDERED: HUMALOG SUBQ ONE (03:54)
[2019-05-28] MEDS ORDERED: CATAPRES PO PRN (03:54)
[2019-05-28] MEDS: TYLENOL PO PRN ×2 (04:33→16:50)
--- NOTE | 2019-05-28 08:00 | Diag Imaging Result Doc PS360 ---
CHEST-1 VIEW - 05/28/2019 INDICATION: AMS COMPARISON: 10/18/2018 FINDINGS: The lungs are normally expanded and clear. Heart size and mediastinal contours are normal. No pneumothorax or pleural effusion. IMPRESSION: Negative exam. Electronically signed by Oliver Che 05/28/2019 7:58 AM
--- NOTE | 2019-05-28 08:03 | Diag Imaging Result Doc PS360 ---
CT HEAD W/O CONTRAST - 05/27/2019 INDICATION: AMS COMPARISON: 10/18/2018 FINDINGS: The ventricles and sulci are normal in size and contour. No intracranial mass or hemorrhage. The skull is intact. The sinuses mastoids and middle ears are clear. IMPRESSION: Negative exam. This exam was performed using automated exposure control, adjustment of mA or kV according to patient size, and/or use of iterative reconstruction technique Electronically signed by Oliver Che 05/28/2019 8:01 AM
[2019-05-28] MEDS ORDERED: ICAR-C PO SCH (09:00)
[2019-05-28] MEDS ORDERED: SYNTHROID PO SCH ×2 (09:00)
[2019-05-28] MEDS: CYMBALTA PO SCH ×2 (10:08→22:58)
[2019-05-28] MEDS: LIPITOR PO SCH (10:08)
[2019-05-28] MEDS: VITAMIN D PO SCH (10:08)
[2019-05-28] MEDS: LANTUS INSULIN SUBQ SCH (10:08)
[2019-05-28] MEDS: VITAMIN C PO SCH (10:08)
[2019-05-28] MEDS: VICON-C PO SCH (10:28)
[2019-05-28] MEDS: SYMBICORT 160/4.5 MICROGM INHALER INH SCH ×2 (11:00→19:01)
[2019-05-28] MEDS: HUMALOG SUBQ SCH ×2 (11:49→16:47)
[2019-05-28] MEDS ORDERED: HUMALOG SUBQ SCH (12:00)
[2019-05-28 12:06] LABS: HEMOGLOBIN A1C 11.7 % (4.8-6.0)
[2019-05-28] MEDS: ZOFRAN IV PRN ×2 (12:11→17:40)
--- NOTE | 2019-05-28 13:34 | PROGRESS NOTE ---
DATE: 05/28/2019 SUBJECTIVE: This morning, Ms. Valadez referred to be doing a whole lot better. She got admitted yesterday because of some altered mental status and the fact that her glucose was ridiculously high, with presenting serum level 764. This morning, she refers to be feeling a lot better. She is more alert and more conversational. OBJECTIVE: Vital signs: Her blood pressure is 110/62, pulse of 89, respiration is 18, temperature 97.4 degrees. General: Ms. Valadez is a 48-year-old morbidly obese female. She is in bed, no distress. HEENT: Mucosa is pink and moist. Anicteric. Acyanotic. Neck: Neck is supple. Chest: Clear to auscultation. Cardiovascular: Regular rate and rhythm. Abdomen: Soft, nontender. Bowel sounds present. Extremities: No pedal edema. 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 There is no focal neurological deficit. LABORATORY DATA: None for this morning. Her glucose, however, is now down to 285 with still pending A1c. IMAGING STUDIES: 1. A CT scan of the head was unremarkable. 2. A chest x-ray showed negative. ASSESSMENT: 1. Altered mental status on presentation due to metabolic derangements. 2. Severe hyperglycemia. 3. Clinical volume depletion. 4. Lactic acidosis due to dehydration. 5. Diabetes mellitus, on insulin regimen at home. 6. Morbid obesity. 7. History of thyroid cancer, status post thyroidectomy. The patient is on thyroid replacement therapy. PLAN: In general, I think Ms. Valadez is now more stabilized. She is more alert. She is having a rational conversation. We are going to start her back on her regular medications this morning. We will get an A1c, and we will re-evaluate her later on. If she is fairly stable, I think she will be okay for discharge. She normally follows up with an director of teaching and learning in [facility] in [place], and she has appointment for the 06/13/2019. cc: Diego Farris MD
--- NOTE | 2019-05-28 14:13 | HISTORY AND PHYSICAL ---
CHIEF COMPLAINT: Confusion and slurred speech. HISTORY OF PRESENT ILLNESS: This 48-year-old white female with an incredibly complex medical history, which will be delineated below, was at [facility] with her this evening. As they were leaving the store around 11:00 in the evening, she stated that she that she felt like she got hit in the back of the head with a 2 x 4. She was confused and her speech was slurred. She knew what she was trying to say but could not get it out. There had been no trauma, and she had been feeling reasonably well up to that point. The patient's drove her to the emergency room, and there she was found to have a markedly elevated blood sugar. Although her sensorium improved somewhat during her hospitalization, it was felt that the most prudent thing would be to observe her for at least 24 hours, and make sure her sugar got down and that she was adequately hydrated and back to her baseline. PAST MEDICAL HISTORY: 1. Type 2 diabetes requiring insulin with poor control. She has been seen by local physicians as well as at [facility] for this. 2. Long history of asthma. 3. Long history of thyroid cancer. 4. Hypothyroidism secondary to cancer treatment. 5. Hypertension. 6. Dyslipidemia. 7. Hypoparathyroidism. 8. Peripheral neuropathy secondary to diabetes. 9. Meniere's disease bilateral with gait and mobility issues. 10. Fatty liver disease. PAST SURGICAL HISTORY: 1. Appendectomy. 2. Cholecystectomy. 3. . 4. Tubal ligation. SOCIAL HISTORY: The patient is a nonsmoker and nonuser of alcohol. She is and lives with her . She sees multiple subspecialists across the spectrum in multiple locations. FAMILY HISTORY: The patient's family is rife with heart disease, high blood pressure, and diabetes. Her mother had cancer of some sort. ALLERGIES: Codeine, Lasix, and Demerol. REVIEW OF SYSTEMS: The patient denies any fever or chills. Her weight is stable. She has been eating and drinking normally. She denies any cough, wheezing, or shortness of breath. She has had no chest pain or palpitations. She has had no nausea, vomiting, diarrhea, or constipation. She denies any genitourinary symptoms. She has chronic neuropathic pain and numbness involving mostly her legs. PHYSICAL EXAMINATION: VITAL SIGNS: 98.5, 109, 28, 163/95, and 95% saturated on room air. GENERAL: She is a morbidly obese white female whose hair is wet. She is tearful but coherent. HEENT: The patient appears to have androgenous alopecia. Sclerae are anicteric. Oral mucosa appears adequately hydrated with normal coloration. NECK: No carotid bruits. LUNGS: Clear to auscultation. CARDIOVASCULAR: Regular and not tachycardic at the present time. ABDOMEN: Protuberant. Bowel sounds are present. EXTREMITIES: The patient seems to have decreased sensation in her legs, although she eventually was responsive to painful stimuli on the pretibial areas. There is no edema. It is noted that the toes of her right foot are curled up in an apparent chronic neuropathic state. PSYCHIATRIC: The mood is a bit labile, but she is generally coherent and can follow commands. LABORATORY: White cell count is normal. Hematocrit 45.5. ABG shows a pH of 7.39, pCO2 of 38, PO2 of 72, and 95% saturated on room air. Sodium is 131, chloride 89, CO2 is 20. Serum glucose is 764. Urinalysis shows moderate leukocytes. Urine drug screen is negative. ASSESSMENT AND PLAN: 1. The patient's hyperglycemia is the primary problem warranting admission, particularly given her mental status change. Her seems to indicate that to a great degree of her sensorium has been restored after getting some IV fluids. She seems to think that she is better as well. We are going to q.4 hours fingersticks with Humalog sliding scale. We will reestablish her usual insulin regimen in the morning, and monitor her closely through the day. Hopefully, we can rapidly gain control and discharge her with minimal changes to her regimen. In reading through her [facility] chart, as well as speaking about her medical history with multiple other subspecialists, she has been thoroughly evaluated in multiple capacities even in recent times. 2. In the emergency room, the patient's blood pressure was elevated. We will continue to monitor this. I have p.r.n. clonidine written, and we will reestablish her home medications as appropriate. 3. There are moderate leukocytes in the urine. I am not inclined to treat that given the normal white count and no fever. I will have them remove the Roberson catheter as per patient wishes, and hopefully we can stave off any other sign of infection. If she manifests any sign of infection going forward, I would not hesitate at that time to institute antibiotic therapy. 4. Hypothyroidism. We will need to reestablish the patient's thyroid medications. cc: Tone Rivera MD MTDD
[2019-05-28 14:54] LABS: AGAP 14; ALBUMIN 3.5 g/dL (3.5-5.0); BUN 8 mg/dL (8-22); CALCIUM 8.3 mg/dL (8.8-10.2); CHLORIDE 106 mmol/L (98-107); COSMO 293; CREATININE 0.7 mg/dL (0.5-0.9); ESTIMATED GFR > 60; GLUCOSE 302 mg/dL (70-104); PHOSPHORUS 3.4 mg/dL (2.7-4.5); POTASSIUM 3.9 mmol/L (3.5-5.1); SODIUM 142 mmol/L (136-145); TCO2 22 mmol/L (25-35)
[2019-05-28] MEDS ORDERED: PRINIVIL PO SCH (21:00)
[2019-05-28] MEDS ORDERED: LAMICTAL PO SCH (21:00)
[2019-05-28] MEDS ORDERED: MINIPRESS PO SCH (21:00)
[2019-05-28] MEDS ORDERED: KLONOPIN PO SCH (21:00)
[2019-05-28] MEDS ORDERED: AMARYL PO SCH (21:00)
[2019-05-28] MEDS ORDERED: RESTORIL PO SCH (21:00)
[2019-05-29] MEDS: HUMALOG SUBQ SCH ×2 (06:26→10:42)
[2019-05-29] MEDS ORDERED: PATIENT'S OWN MED PO SCH ×2 (07:00)
[2019-05-29] MEDS: SYMBICORT 160/4.5 MICROGM INHALER INH SCH (07:38)
[2019-05-29] MEDS: LIPITOR PO SCH (08:28)
[2019-05-29] MEDS: LANTUS INSULIN SUBQ SCH (08:28)
[2019-05-29] MEDS: CYMBALTA PO SCH (08:29)
[2019-05-29] MEDS: VITAMIN C PO SCH (08:29)
[2019-05-29] MEDS: VICON-C PO SCH (08:29)
[2019-05-29] MEDS: VITAMIN D PO SCH (08:29)
[2019-05-29] MEDS ORDERED: ICAR-C PO SCH (09:00)
[2019-05-29] MEDS: ZOFRAN IV PRN (10:15)
[2019-05-29] MEDS ORDERED: DULCOLAX PR ONE (10:40)
[2019-05-29] MEDS ORDERED: BENTYL IM ONE (11:36)
[2019-05-29] MEDS ORDERED: MIRALAX PO ONE (11:36)
--- NOTE | 2019-05-29 11:53 | Diag Imaging Result Doc PS360 ---
ABDOMEN FLAT/UPRIGHT - 05/29/2019 INDICATION: pain COMPARISON: None FINDINGS: There is mild constipation throughout the colon. No bowel obstruction or free air. There are surgical clips in the right upper quadrant. IMPRESSION: Mild constipation but no acute disease. Electronically signed by Oliver Che 05/29/2019 11:51 AM
[2019-05-29 12:20] VITALS: BP 123/73
--- NOTE | 2019-05-29 20:58 | DISCHARGE SUMMARY ---
ADMISSION DATE: 05/27/2019 DISCHARGE DATE: 05/29/2019 DISPOSITION: Home. FOLLOWUP: Dr. Mann. CONSULTATION DURING THIS ADMISSION: None. IMAGING STUDIES OF SIGNIFICANCE: 1. A CT scan of the head was negative. 2. A chest x-ray was negative. 3. A KUB this morning did show mild constipation, but no acute disease. ADMISSION DIAGNOSIS: 1. Hyperglycemia. 2. Hypertension. 3. Leukocytosis. 4. Hypothyroidism. DIAGNOSIS AT THE TIME OF DISCHARGE: 1. Altered mental status on presentation secondary to metabolic encephalopathy. 2. Severe hyperglycemia on presentation. 3. Clinical volume depletion. 4. Lactic acidosis secondary to dehydration. 5. Diabetes mellitus on insulin regimen at home. 6. Morbid obesity with BMI of 39.2. 7. History of thyroid cancer status post thyroidectomy. 8. Constipation. 9. Multiple psychotropic medications with risk of polypharmacy. DISCHARGE MEDICATIONS: 1. Lisinopril 20 mg p.o. at bedtime. 2. Vitamin B complex. 3. Albuterol inhaler. 4. Cholecalciferol. 5. Iron. 6. Atorvastatin 40 mg p.o. daily. 7. Lamictal 100 mg p.o. at bedtime. 8. Prazosin 1 mg p.o. at bedtime. 9. Temazepam 50 mg p.o. at bedtime. 10. Glimepiride 2 mg p.o. q.a.m. 11. Insulin glargine 70 units subcutaneously in the morning. 12. Ascorbic acid 2 tablets p.o. daily. 13. Symbicort. 14. Klonopin 1 mg p.o. at bedtime. 15. Insulin aspartate 30 units before meals. 16. Levothyroxine 325 daily. 17. Cymbalta 60 mg p.o. b.i.d. PRESENTING COMPLAINT: Confusion and slurred speech. HISTORY OF PRESENTING COMPLAINT: Ms. Valadez is a 48-year-old female with multiple comorbidities on multiple psychotropic medications, who was brought to the emergency department because of acute onset of confusion and slurred speech. Upon presentation, patient was evaluated and was found to have a glucose level of 764. She was very dehydrated, was extremely acidotic with the lactic acid level of 7.3. The acetone was negative. She was subsequently admitted for acute confusion to rule out neurological insult. HOSPITAL COURSE: Ms. Valadez was admitted to [facility]. A CT scan was done which showed no obvious acute disease. Her glucose was managed with insulin, and she was adequately fluid resuscitated. During the hospital course, her plasma lactate dropped to 2.5. Hydration status improved, and her mentation completely resolved. Her current glucose is 185, and she has been started back on her regimen. We think Ms. Valadez is also on a lot of psychotropic medications which could have compounded her neurological insult from the hyperglycemia and the dehydration. We have advised her to follow up with her primary care doctor to evaluate the need for all those medications. This morning Ms. Valadez referred to be slightly nauseated. A KUB shows constipation. She has been placed on bowel regimen. We think she is fairly stable for discharge. Her glucose level is now under better control. Her current vitals, blood pressure is 123/73, pulse of 109, respiration is 18, temperature 97.6 degrees. The patient is saturating 98% on room air. She is currently asymptomatic, and she is stable for discharge. All the discharge instructions have been discussed with her, and she voiced understanding. Time spent for discharge was 36 minutes. cc: MD Lashay Gutierrez MD
== END 2019-05-29 15:47 | disposition home or self-care (01) ==
LOC: 2N 23:05 → ED 23:05 → SUATTDRO 23:06
PROVIDERS: ATTEND Internal Medicine

== ENCOUNTER 2019-07-25 08:53 | Inpatient (IN) ==
[2019-07-25] MEDS ORDERED: ZOFRAN IV ONE (09:18)
[2019-07-25] MEDS ORDERED: NS 1,000 ML IV ONE ×3 (09:19→15:36)
--- NOTE | 2019-07-25 09:27 | PROVIDER DOCUMENTATION ---
HPI-General Adult - General Chief Complaint: Extremity Pain Stated Complaint: LT ARM,HAND NUMBNESS,PANIAGUA,BACK PAIN,VOMITING Time Seen by Provider: 07/25/19 09:04 Source: patient Allergies/Adverse Reactions: Patient Allergies Allergy/AdvReac Type Severity Reaction Status Date / Time codeine Allergy ITCHING Verified 07/25/19 09:19 latex Allergy HIVES Verified 07/25/19 09:19 meperidine HCl * AdvReac Severe ANAPHYLAXIS Verified 07/25/19 09:19 [From Demerol] fire ant AdvReac SHORTNESS Verified 07/25/19 09:19 OF BREATH Home Medications: Home Medication List Medication Instructions Recorded Confirmed Last Taken Type LISINOpril [Prinivil] 20 mg PO QHS 04/10/13 07/25/19 07/24/19 History Albuterol Sulfate [Proair Hfa] 2 puff IH Q8H PRN 09/03/16 07/25/19 07/24/19 History Cholecalciferol (Vitamin D3) 10,000 unit PO DAILY 09/03/16 07/25/19 07/24/19 History [Vitamin D3] Vitamin B Complex 1 each PO DAILY 09/03/16 07/25/19 07/24/19 History Iron,Carbonyl [Carbonyl Iron] 60 mg PO DAILY 11/22/16 07/25/19 07/24/19 History ATORVAstatin [Lipitor] 40 mg PO DAILY 10/18/18 07/25/19 07/24/19 History Glimepiride 2 mg PO QPM 10/18/18 07/25/19 07/24/19 History Insulin Glargine [Lantus] 80 units SQ QAM 10/18/18 07/25/19 07/24/19 History Lamotrigine [Lamictal Odt] 100 mg PO HS 10/18/18 07/25/19 07/24/19 History Prazosin HCl 1 mg PO HS 10/18/18 07/25/19 07/24/19 History Temazepam [Restoril] 15 mg PO QHS 10/18/18 07/25/19 07/24/19 History Ascorbic Acid [Vitamin C] 2 tab PO DAILY 11/01/18 07/25/19 07/24/19 History Budesonide/Formoterol Fumarate 1 - 2 puff IN BID 02/08/0907/25/19 07/24/19 History [Symbicort 160-4.5 Mcg Inhaler] Clonazepam [Klonopin] 1 mg PO QHS 05/28/19 07/25/19 07/24/19 History Duloxetine [Cymbalta] 60 mg PO BID 05/28/19 07/25/19 07/24/19 History Insulin Aspart [Novolog] 30 unit SQ WLUNCH 05/28/19 07/25/19 07/24/19 History Levothyroxine Sodium [Tirosint] 325 mcg PO DAILY 07/25/19 07/25/19 Unknown History Nitrofurantoin [place]/Macrocryst 100 mg PO BID 07/25/19 07/25/19 Unknown History [Macrobid] - History of Present Illness -Gen Adult Nature of Presenting Problems: Patient is a 48 yowf who presents with multiple complaints. States that she has had mid-back pain in left shoulder blade region since falling in the shower 2-3 weeks ago. States she attempted to catch herself with her left arm. The pain is exacerbated by movement of her left arm and deep inspiration. Gradually, she has developed left arm paresthesia since the injury. Also reports n/v that began this morning. Denies chest pain, SOB, abdominal pain, fever, or any other complaints. She is neurologically intact and non-toxic in appearance. Review of Systems - Adult - REVIEW OF SYSTEMS - ADULT Constitutional: reports: no symptoms reported. denies: chills, fever Eyes: reports: no symptoms reported Ears, Nose, Mouth & Throat: reports: no symptoms reported Cardiovascular: reports: no symptoms reported. denies: chest pain, edema, orthopnea, palpitations, syncope Respiratory: reports: no symptoms reported. denies: cough, dyspnea on exertion, shortness of breath Gastrointestinal: reports: see HPI Genitourinary: reports: no symptoms reported Musculoskeletal: reports: see HPI Integumentary: reports: no symptoms reported Neurological: reports: see HPI, paresthesia. denies: ataxia, dizziness/vertigo, headache/migraines, loss of balance, numbness, seizure, slurred speech, syncope, tremors Psychiatric: reports: no symptoms reported Endocrine: reports: no symptoms reported Hematologic/Lymphatic: reports: no symptoms reported Allergic/Immunologic: reports: no symptoms reported All Other Systems: Reviewed and Negative Past History - Adult - PAST MEDICAL HISTORY-ADULT Review of Records: reports: Nursing Assessment Review, Medications Reviewed, Social history reviewed & non-contributory. Major Childhood Illnesses: reports: denies history Cardiovascular: reports: arrhythmia, HTN, hyperlipidemia Respiratory: reports: asthma, sleep apnea Gastrointestinal: reports: GERD Obstetrical/Gynecological: reports: denies history Genitourinary: reports: denies history Musculoskeletal: reports: denies history Neurological: reports: denies history Endocrine/Immune: reports: Diabetes, thyroid disorder Other Conditions: reports: denies history - PRIOR SURGERIES/PROCEDURES Surgical/Procedure History: reports: appendectomy, cholecystectomy, hysterectomy , BTL, - IMMUNIZATION STATUS Childhood Immunizations: See Nurse Assessment Flu Vaccine: See Nurse Assessment - FAMILY HISTORY Family History: reviewed, not pertinent - SOCIAL HISTORY Smoking: non-smoker Physical Exam-General - PHYSICAL EXAM-ADULT Initial Vital Signs Reviewed: Yes - CONSTITUTIONAL General Appearance: alert, mild distress. negative: lethargic, slow to respond - EYES Eyes: PERRL/EOMI, pink conjunctivae. negative: sclera injected, scleral icterus, sunken eyes - HEAD, EARS, NOSE, MOUTH & THROAT HENMT: normocephalic/atraumatic, moist mucous membranes - NECK Neck: non-tender, full range of motion, supple, normal inspection. negative: C- spine tenderness, meningismus - RESPIRATORY Respiratory: chest non-tender, lungs clear, normal breath sounds, no respiratory distress, no accessory muscle use - CARDIOVASCULAR Cardiovascular: normal peripheral pulses, regular rate, rhythm, no edema, no gallop, no JVD, no murmur, tachycardia - GASTROINTESTINAL (ABDOMEN) Abdominal Exam: normal bowel sounds, non tender, soft, no organomegaly, no pulsatile mass. negative: distended, guarding, rigid, rebound, tenderness, hernia, mass - MUSCULOSKELETAL Back Exam: normal inspection, no CVA tenderness, vertebral tenderness (Thoracic region and to left of midline at scapular region- moderate. No palpable deformity.) Extremity: normal inspection, normal capillary refill, pelvis stable, other (ROM of left arm exacerbates pain in back on exam. No shoulder/arm tenderness or deformities noted.). negative: deformity, pulse deficit, slow capillary refill, swelling Peripheral Pulses: radial (L): 3+ - SKIN Integumentary: normal color, warm/dry. 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 negative: abnormal gait, aphasia, facial droop, focal weakness, motor weakness, sensory deficit - PSYCHIATRIC Psych/Mental Status: normal mood/affect, normal thought content, normal thought process, oriented x 3 Progress - PLAN OF CARE/RESULTS Progress/Plan/Lab Results: Vital Signs - 8 hr 07/25/19 09:00 Temperature 97.4 F L Pulse Rate 119 H Blood Pressure 149/93 O2 Sat by Pulse Oximetry 94 L Orders Category Date Time Status Cardiac Monitoring DIRECTED Care 07/25/19 09:19 Ordered Nursing- Obtain EKG ONCE Care 07/25/19 09:19 Ordered Saline Loc NOW Care 07/25/19 09:19 Ordered CHEST-2 VIEWS [RAD] Stat Exams 07/25/19 09:[address] HEAD/C-SPINE W/O CONTRAST [CT] Stat Exams 07/25/19 09:19 Ordered SCAPULA-LEFT [RAD] Stat Exams 07/25/19 09:19 Ordered THORACIC SPINE [RAD] Stat Exams 07/25/19 09:19 Ordered AMYLASE [CHEM] Stat Lab 07/25/19 09:21 Uncollected CBC WITH DIFF [HEME] Stat Lab 07/25/19 09:17 Ordered COMPREHENSIVE METABOLIC PANEL [CHEM] Stat Lab 07/25/19 09:17 Uncollected LIPASE [CHEM] Stat Lab 07/25/19 09:21 Uncollected PROTIME WITH INR [COAG] Stat Lab 07/25/19 09:17 Ordered PTT [COAG] Stat Lab 07/25/19 09:17 Ordered TROPONIN T Stat Lab 07/25/19 09:17 Ordered UA NIMS W/REFLEX CULT [URINALYSIS] Stat Lab 07/25/19 09:19 Uncollected Ns 1000 ml IV Bolus X1 Med 07/25/19 09:19 Ordered 0.9% Sodium Chloride Inj [Ns] 1,000 ml IV 999 mls/hr Ondansetron [Zofran] Med 07/25/19 09:18 Once 4 mg IV NOW ONE EKG [EKG] Stat Ther 07/25/19 09:17 Ordered Result Diagrams: 07/25/19 09:31 07/25/19 09:31 - REASSESSMENT Reassessment #1 Time Reassessed: 12:32 Status: improving (Nausea resolved. Pt state Morphine was effective for back pain temporarily, but states it wore off and she requests more. Discussed case with Dr. Ferraro who recommends repeating lactate level after IVF and discharging home if down. Repeat trop/ekg and lactated ordered.) Reassessment #2 Time Reassessed: 14:22 Status: other (Admitting HPS paged.) Reassessment #3 Time Reassessed: 14:37 Status: other (Discussed case with Dr. Ferraro who recommends admission. Pt in agreement with admission plan.) - EKG 1 Time of EKG reading by physician:: 10:36 EKG Read and Signed by:: Chani Ferraro EKG Interpretation (*Must complete 3 of following elements*): Abnormal Rate: 117 Rhythm: sinus tach- nonspecific ST and T wave abnormality QRS: normal - XRAY 1 XRAY Study: Chest ([facility] - [address] [place] [address] [address] [address] [facility] - [address] [place] [address] Department of Imaging Patient: MALLIKA ROMERO Date: 07/25/19MR#: [id number] : 1970ADM Status: REG [facility]#: [id number] Age/Sex: 48/FRoom/Bed: Loc: ED Ordering Physician: Noris Benavides Family Physician: Lashay Mann MD Reason for Procedure: left arm pain, n/v, back pain with inspiration Signed EXAM: CHEST-2 VIEWS HISTORY: left arm pain, n/v, back pain with inspiration TECHNIQUE: Two views COMPARISON: 05/28/2019 FINDINGS: The lungs are well expanded. The heart is not enlarged. The vessels are not distended. There are no infiltrates. No pleural effusions. IMPRESSION: No acute abnormality. Electronically signed by Boris Ojeda 07/25/2019 10:21 AM 07/25/19 1021 Interpreting Physician: Boris Ojeda MD Dictated Date/Time: 07/25/19 1021 cc: Noris Benavides; Lashay Mann MD) 2 XRAY: Left XRAY Study: other (Scapula: [facility] - [address], [address], [place] [address] [place] [address] [place] [address] Department of Imaging Patient: MALLIKA ROMERO Date: 07/25/19#: [id number] : 1970ADM Status: REG [facility]#: [id number] Age/Sex: 48/FRoom/Bed: Loc: ED Ordering Physician: Noris Benavides Family Physician: Lashay Mann MD Reason for Procedure: injury/fall Signed EXAM: SCAPULA-LEFT HISTORY: injury/fall TECHNIQUE: Two views COMPARISON: 10/18/2018 FINDINGS: No fracture. No dislocation. IMPRESSION: No acute bony injury. Electronically signed by Boris Ojeda 07/25/2019 10:24 AM 07/25/19 1024 Interpreting Physician: Boris Ojeda MD Dictated Date/Time: 07/25/19 1023 cc: Noris Benavides; Lashay Mann MD) 3 XRAY Study: Thoracic Spine ([facility] - [address], [address], [place] [address] [address] [place] [address] Department of Imaging Patient: MALLIKA ROMERO Date: 07/25/19MR#: [id number] : 1970ADM Status: REG ERAt#: [id number] Age/Sex: 48/FRoom/Bed: Loc: ED Ordering Physician: Noris Benavides Family Physician: Lashay Mann MD Reason for Procedure: injury Signed EXAM: THORACIC SPINE HISTORY: injury TECHNIQUE: AP and lateral, three views COMPARISON: None. FINDINGS: There is good alignment to the thoracic spine. No subluxation. No degenerative bone spurring. No fracture. IMPRESSION: Negative exam. Electronically signed by Boris Ojeda 07/25/2019 10:22 AM 07/25/19 1022 Interpreting Physician: Boris Ojeda MD Dictated Date/Time: 07/25/19 1021 cc: Noris Benavides; Lashay Mann MD) - CT/MRI 1 CT Study: Cervical Spine ([facility] - [address] [place] [address], [address] [id number] [facility] - [facility] [place] [address] Department of Imaging Patient: MALLIKA ROMERO Date: 07/25/19MR#: [id number] : 1970ADM Status: REG ERAcct#: [id number] Age/Sex: 48/FRoom/Bed: Loc: ED Ordering Physician: Noris Benavides Family Physician: Lashay Mann MD Reason for Procedure: left arm paresthesia Signed EXAM : CT HEAD/C-SPINE W/O CONTRAST HISTORY: left arm paresthesia TECHNIQUE: 1. CT head without contrast 2. CT cervical spine without contrast COMPARISON: Head compared to 05/27/2019 FINDINGS: Head: No parenchymal hemorrhage. No epidural or subdural hematoma. No subarachnoid hemorrhage. No mass identified on this noncontrasted exam. No hydrocephalus. No skull fracture. Cervical spine: There is reversal of the normal curvature. Prominent degenerative changes in the lower cervical spine with mild degenerative changes in the mid cervical spine. No subluxation. No fracture. Mild to moderate spinal stenosis at several levels in the lower cervical spine. No disc herniation identified. IMPRESSION: Head: No hemorrhage. No injury. Cervical spine: No acute fracture. Lower cervical moderate spinal stenosis. An outpatient follow-up MRI may be beneficial. This exam was performed using automated exposure control, adjustment of mA or kV according to patient size, and/or use of iterative reconstruction technique. Electronically signed by Boirs Ojeda 07/25/2019 9:59 AM 07/25/19 0959 Interpreting Physician: Boris Ojeda MD Dictated Date/Time: 07/25/19 0956 cc: Noris Benavides; Lashay Mann MD), Head - CONSULTS/PCP/HOSPITALIST Notification #1 *Consult/PCP/Hospitalist*: MARIELOS Miller [employer] HELPER Time Discussed: 14:37 Reason/Comments: admission- dehydration, vomiting, elevated lactic acid level, UTI Consult Disposition: Will see in ED, Admit Departure - Departure Date of Disposition Decision: 07/25/19 Time of Disposition Decision: 14:36 DIAGNOSIS: Dehydration, Elevated lactic acid level Diabetes Qualifiers: Diabetes mellitus type: type 2 Diabetes mellitus ocean transportation intermediary insulin use: u nspecified ocean transportation intermediary insulin use status Diabetes mellitus complication status: with hyperglycemia Qualified Code(s): E11.65 - Type 2 diabetes mellitus with hyperglycemia Degenerative disc disease Qualifiers: Spinal region: cervicothoracic Qualified Code(s): M50.33 - Other cervical disc degeneration, cervicothoracic region UTI (urinary tract infection) Qualifiers: Urinary tract infection type: site unspecified Hematuria presence: without hematuria Qualified Code(s): N39.0 - Urinary tract infection, site not specified Disposition: ADMITTED INPATIENT 09 Certified Medical Emergency: Emergent Condition: Stable Referrals and Follow-Ups: Lashay Mann MD [Primary Care Provider] - - Critical Care Note This patient required my direct & personal management of CC.: No Attestation - Physician/ ISAAC Attestation Patient care was provided by Advanced Practice Provider:: Yes Advanced Practice Provider:: Noris Benavides Advanced Practice Provider documentation review:: The Mid-level provider documentation, treatment plan and medical decision making was reviewed by the physician who agrees with all treatment and medical decision making by the MLP. The physician spent face to face time with patient:: No Advanced Practice Provider documentation review:: Supervising physician onsite and consulted in the evaluation and care of this patient. The physician did not have a face to face encounter with the patient. - HEART Score HEART Score: History: Slightly Suspicious HEART Score: ECG: Non-Specific Repolarization Disturbance/LBBB/PM HEART Score: Age: 45-65 Years HEART Score: Risk Factors for Atherosclerotic Disease: > or = 3 Risk Factors or History of Atherosclerotic Disease HEART Score: Troponin: < or = Normal Limit Total HEART Score:: 4
[2019-07-25 09:36] LABS: URINE SOURCE CLEAN CATCH
--- NOTE | 2019-07-25 09:36 | EKG Report ---
Test Performed on : 07/25/2019 10:34:21 AM Test Reason : CP Blood Pressure : / mmHG Vent. Rate : 117 BPM Atrial Rate : 117 BPM P-R Int : 132 ms QRS Dur : 094 ms QT Int : 342 ms P-R-T Axes : 059 026 157 degrees QTc Int : 477 ms Sinus tachycardia. Nonspecific ST and T wave abnormality Abnormal ECG When compared with ECG of 27-MAY-2019 23:45, Nonspecific T wave abnormality now evident in Lateral leads Unconfirmed Result
[2019-07-25 09:43] LABS: BASO# 0.07 X1000 (0.0-0.2); BASO% 0.9 % (0.0-0.8); EOS% 6.7 % (0.0-10.0); HEMATOCRIT 45.6 % (37.0-47.0); HEMOGLOBIN 14.8 g/dL (12.0-16.0); IMM GRAN# 0.06 X1000 (0.0-0.04); IMM GRAN% 0.8 % (0.0-0.5); LYMPH# 2.75 X1000 (1.2-3.4); LYMPH% 37.1 % (20.5-51.1); MCH 29.8 PG (27-31); MCHC 32.5 g/dL (33-37); MCV 91.8 FL (81-99); MONO# 0.37 X1000 (0.11-0.59); MPV 10.4 FL (7.4-10.4); NEUT# 3.66 X1000 (1.4-6.5); NEUT% 49.5 % (42.2-75.2); PLT 294 X1000 (130-400); RBC 4.97 XMIL (4.2-5.4); WBC 7.41 X1000 (4.8-10.8)
[2019-07-25 09:44] LABS: BILIRUBIN URINE NEGATIVE (NEGATIVE); BLOOD URINE NEGATIVE (NEGATIVE); COLOR STRAW; GLUCOSE URINE >1000 mg/dL (NEGATIVE); KETONE URINE 20 mg/dL (NEGATIVE); LEUKOCYTES URINE SMALL (NEGATIVE); NITRITE URINE NEGATIVE (NEGATIVE); PH URINE 5.5; PROTEIN URINE NEGATIVE (NEGATIVE); SP GRAVITY URINE 1.031; TURBIDITY URINE CLEAR (CLEAR); UR EPITHELIAL CELLS <10 /HPF (<10); URINE BACTERIA NEGATIVE /HPF; URINE RBC <10 /HPF (<10); URINE WBC <10 /HPF (<10); UROBILINOGEN URINE NORMAL (NORMAL)
[2019-07-25 09:50] LABS: INR 0.82; PROTIME 11.3 Seconds (11.0-16.0)
[2019-07-25 09:51] LABS: PTT 24.3 Seconds (22.3-41.8)
--- NOTE | 2019-07-25 10:01 | Diag Imaging Result Doc PS360 ---
EXAM : CT HEAD/C-SPINE W/O CONTRAST HISTORY: left arm paresthesia TECHNIQUE: 1. CT head without contrast 2. CT cervical spine without contrast COMPARISON: Head compared to 05/27/2019 FINDINGS: Head: No parenchymal hemorrhage. No epidural or subdural hematoma. No subarachnoid hemorrhage. No mass identified on this noncontrasted exam. No hydrocephalus. No skull fracture. Cervical spine: There is reversal of the normal curvature. Prominent degenerative changes in the lower cervical spine with mild degenerative changes in the mid cervical spine. No subluxation. No fracture. Mild to moderate spinal stenosis at several levels in the lower cervical spine. No disc herniation identified. IMPRESSION: Head: No hemorrhage. No injury. Cervical spine: No acute fracture. Lower cervical moderate spinal stenosis. An outpatient follow-up MRI may be beneficial. This exam was performed using automated exposure control, adjustment of mA or kV according to patient size, and/or use of iterative reconstruction technique. Electronically signed by Boris Ojeda 07/25/2019 9:59 AM
[2019-07-25] MEDS ORDERED: MORPHINE IV ONE (10:06)
[2019-07-25 10:10] LABS: AMYLASE 20 U/L (20-200); LIPASE 21 U/L (13-60)
[2019-07-25 10:13] LABS: AGAP 19; ALB/GLOB RATIO 1.7; ALBUMIN 4.5 g/dL (3.5-5.0); ALKALINE PHOSPHATASE 84 U/L (32-104); BUN 14 mg/dL (8-22); CALCIUM 10.2 mg/dL (8.8-10.2); CHLORIDE 90 mmol/L (98-107); COSMO 290; CREATININE 0.7 mg/dL (0.5-0.9); ESTIMATED GFR > 60; GLUCOSE 548 mg/dL (70-104); GOT 23 U/L (10-30); GPT 29 U/L (10-36); POTASSIUM 4.6 mmol/L (3.5-5.1); SODIUM 132 mmol/L (136-145); TCO2 23 mmol/L (25-35); TOTAL BILIRUBIN 0.43 mg/dL (0.20-1.00); TOTAL PROTEIN 7.1 g/dL (6.3-8.3)
[2019-07-25] MEDS ORDERED: HUMULIN R IV ONE (10:14)
--- NOTE | 2019-07-25 10:24 | Diag Imaging Result Doc PS360 ---
EXAM: CHEST-2 VIEWS HISTORY: left arm pain, n/v, back pain with inspiration TECHNIQUE: Two views COMPARISON: 05/28/2019 FINDINGS: The lungs are well expanded. The heart is not enlarged. The vessels are not distended. There are no infiltrates. No pleural effusions. IMPRESSION: No acute abnormality. Electronically signed by Boris Ojeda 07/25/2019 10:21 AM
--- NOTE | 2019-07-25 10:24 | Diag Imaging Result Doc PS360 ---
EXAM: THORACIC SPINE HISTORY: injury TECHNIQUE: AP and lateral, three views COMPARISON: None. FINDINGS: There is good alignment to the thoracic spine. No subluxation. No degenerative bone spurring. No fracture. IMPRESSION: Negative exam. Electronically signed by Boris Ojeda 07/25/2019 10:22 AM
--- NOTE | 2019-07-25 10:26 | Diag Imaging Result Doc PS360 ---
EXAM: SCAPULA-LEFT HISTORY: injury/fall TECHNIQUE: Two views COMPARISON: 10/18/2018 FINDINGS: No fracture. No dislocation. IMPRESSION: No acute bony injury. Electronically signed by Boris Ojeda 07/25/2019 10:24 AM
[2019-07-25 10:39] LABS: ALLEN TEST YES; BE -3.1 mmoll (-3.0-3.0); BLOOD TYPE ARTERIAL; HCO3-(ACT) 22.5 mmoll (20.0-26.0); METHB 0.2 % (0.0-1.5); O2(CT) 19.6 mL/dL (15.0-23.0); PCO2(98.6) 39 mmHg (35-45); PO2(98.6) 87 mmHg (60-100); SAMPLE BLOOD; SAO2 96.8 % (95.0-100.0); THB 14.5 g/dL (11.5-17.4); pH(98.6) 7.36 (7.35-7.45)
[2019-07-25 10:42] LABS: MODALITY ROOM AIR
[2019-07-25] MEDS ORDERED: TORADOL IV ONE (12:02)
[2019-07-25] MEDS ORDERED: ROCEPHIN 1 GM in NS 50 ML IV ONE (12:06)
[2019-07-25] MEDS ORDERED: HUMULIN R 100 UNIT in NS 100 ML IV SCH ×2 (15:00→16:15)
[2019-07-25] MEDS ORDERED: ZOFRAN IV PRN (15:36)
[2019-07-25] MEDS ORDERED: LOVENOX SUBQ SCH (15:36)
[2019-07-25] MEDS ORDERED: VENTOLIN HFA INH PRN (15:36)
[2019-07-25] MEDS ORDERED: TYLENOL PO PRN (15:36)
[2019-07-25] MEDS: NS 1,000 ML IV SCH (16:06)
[2019-07-25] MEDS ORDERED: D50W SYRINGE IV SCH (16:15)
[2019-07-25] MEDS: MORPHINE IV PRN ×2 (17:13→21:15)
[2019-07-25] MEDS ORDERED: ROBAXIN PO PRN (17:26)
--- NOTE | 2019-07-25 18:11 | HISTORY AND PHYSICAL ---
ADDENDUM REPORT The patient is stable. She came in because of left shoulder pain and discomfort. She came in because of the nausea. Her blood sugar was over 500 and she was admitted for hyperosmolar nonketotic hyperglycemia. She is a type 2 diabetic. On exam, I really cannot appreciate any crepitus or anything in her left shoulder or glenohumeral or AC joint. She has pain on palpation of her scapula, but all her imaging has been negative. PROBLEM LIST: 1. Hyperglycemic Hyperosmolar Nonketotic Coma/HONK. We will continue IV fluids, intravenous insulin and follow. 2. Left shoulder pain. Really was unremarkable. There is spinal stenosis recommending possible outpatient PT. I will get an orthopedic opinion and see if there are any other treatment options. DISPOSITION: Pending her clinical status. This is a [id number] encounter note with Leticia Vuong. Critical care 35 minutes for hyperglycemia requiring IV insulin, HONK, lactic acidosis. cc: Silverio Melgoza MD
--- NOTE | 2019-07-25 19:35 | HISTORY AND PHYSICAL ---
PRIMARY CARE PROVIDER: Lashay Mann MD PRIMARY 4 H YOU[facility] DEVELOPMENT SPECIALIST: Dr. Padilla located in [facility] in [place]. CHIEF COMPLAINT: Nausea, vomiting, elevated blood sugar. HISTORY OF PRESENT ILLNESS: Ms. Ninfa Valadez is a 48-year-old female with a medical history of uncontrolled diabetes mellitus type 2. She states it was actually controlled up until she found her new driver's license reviewing officer who switched up her medications. Her old driver's license reviewing officer retired. Comes in with complaints of nausea, vomiting intractable that started this morning. She denies polyphagia, polydipsia, polyuria, no fever or chills but was found to have a blood glucose level of 548 and a lactate of 4.3. Although she was negative for acetone, she did have some ketones in her urine. She was not acidotic, pH was 7.36. Given the elevation in her glucose and the anion gap being around 19, she is going to be admitted. She will be treated with an insulin drip. She will also be monitored in PVC. Otherwise, she has another complaint of numbness and tingling and pain in the left scapular area that has eventually started as some fine tremors with her hand. She states that it happened around 3 weeks ago when she fell in the shower. About 10 days ago, she went to [place], was diagnosed with a sprained muscle and given Flexeril. She has been having migraines ever since. Imaging reveals no fractures; however, she does have a little spinal stenosis noted. PAST MEDICAL HISTORY: 1. Uncontrolled diabetes mellitus type 2. 2. Asthma. 3. Thyroid cancer with thyroidectomy. 4. Hypothyroidism secondary to cancer. 5. Hypertension. 6. Dyslipidemia. 7. Hypoparathyroidism. 8. Diabetic neuropathy. 9. Mnire disease that causes severe gait and mobility issues. She uses a cane. 10. Fatty liver disease. 11. Constipation. 12. Morbid obesity with a BMI of 39.5. 13. Uterine cancer status post total hysterectomy. 14. Depression. SURGICAL HISTORY: 1. Appendectomy. 2. Cholecystectomy. 3. section. 4. Tubal ligation. 5. Thyroidectomy. 6. Hysterectomy. SOCIAL HISTORY: Denies tobacco, drinks a glass of wine maybe once every 6 months. She is and lives with her . Denies any illicit drug use. Uses a cane. Has 3 children. FAMILY HISTORY: Mother had a heart attack at 64, also congestive heart failure and hypertension. Father had congestive heart failure and hypertension. Sister had congestive heart failure and hypertension. Brother had congestive heart failure and hypertension. Also the mother had some sort of cancer. ALLERGIES: Codeine, latex, and Demerol and also fire ants. HOME MEDICATIONS: 1. Klonopin 1 mg p.o. nightly. 2. Lisinopril 20 mg p.o. nightly. 3. Restoril 15 mg p.o. nightly. 4. Adrenoid capsule once p.o. with supper. 5. Black cohosh 540 mg capsule p.o. daily. 6. Iron 60 mg p.o. daily. 7. Cinnamon 500 mg p.o. with supper. 8. Cymbalta 60 mg p.o. twice daily 9. Glimepiride 2 mg p.o. nightly. 10. Lamictal 100 mg p.o. nightly. 11. Lantus 80 units subcutaneous daily. 12. Atorvastatin 40 mg p.o. daily. 13. Macrobid 100 mg p.o. twice daily. 14. Mag-Ox 266 mg p.o. twice daily. 15. Multivitamin 2 capsules with breakfast. 16. NovoLog 30 units subcutaneous t.i.d. 17. Prazosin 1 mg p.o. nightly. 18. Albuterol 2 puffs inhaled every 8 hours p.r.n. 19. Symbicort 160/4.5 mcg 1 to 2 puffs inhaled twice daily. 20. Levothyroxine sodium 325 mcg p.o. daily and on Sundays takes 350 mcg. 21. Vitamin B complex 1 tablet p.o. daily. 22. Vitamin C 200 mg p.o. daily. 23. Vitamin D3 10,000 units p.o. daily. REVIEW OF SYSTEMS: Fourteen-point review of systems are complete, and all were negative except for those mentioned above in HPI. PHYSICAL EXAMINATION: VITAL SIGNS: Temperature 97.8 degrees, heart rate 93, respiratory rate 18, blood pressure 127/81, O2 saturation 96% on room air. GENERAL: Ms. Ninfa Valadez is a 48-year-old female. She is in no acute distress. Able to answer questions appropriately. HEENT: Atraumatic, normocephalic. Pupils equal, round, reactive to light. Extraocular movements intact. Mucous membranes are dry. NECK: Trachea midline. CARDIOVASCULAR: S1, S2. Regular rate and rhythm. No rubs, gallops, murmurs. No lower extremity edema. +2 dorsalis and radial pulses. Negative JVD or carotid bruits. PULMONARY: Clear to auscultation bilateral breath sounds. No accessory muscle use or work of breathing noted. ABDOMEN: Soft, nontender, nondistended. Positive bowel sounds x4. EXTREMITIES: Moves all extremities equally. Full range of motion. Fine tremor noted in the left hand. NEUROLOGIC: A and O x3. Follows commands. Sensory is intact but decreased in the lower extremities. SKIN: Warm, dry and intact. LABORATORY DATA: White blood cells 7000, hemoglobin 14, hematocrit 45, platelet count 294,000. INR 0.82, PTT 24.3. ABGs: pH 7.36, pCO2 39, pO2 87, bicarb 22, base excess -3.1, saturation 96%, lactate 4.3. That was on room air. Sodium 132, potassium 4.6, BUN 14, creatinine 0.7, glucose 548, calcium 10.2, bilirubin 0.43, AST 23, ALT 29, troponin less than 0.01. Albumin is 4.5. Amylase 20 and lipase 21, lactate originally 4.9, is down to 3.4. Urinalysis greater than 1000 glucose, 20 ketones, small leukocytes, negative acetone. IMAGING: EKG: Sinus tachycardia, rate 117, QTc 477. Chest x-ray: No acute abnormality. Head and cervical spine CT: Head with no hemorrhage or injury. Cervical spine with no acute fracture, did show lower cervical moderate spinal stenosis. Scapula x-ray: No fracture or dislocation. Thoracic spine x-ray: Negative exam. ASSESSMENT AND PLAN: 1. Mild HONK or DKA versus uncontrolled diabetes mellitus type 2. Will be placed in PVC on an insulin drip per ICU protocol. She has a clear liquid diet. She has been resumed on her Lantus 80 units subcutaneous daily. 2. Intractable nausea and vomiting have resolved after IV fluid hydration. 3. Hypothyroidism. Continue her Synthroid. 4. Hypertension. Continue lisinopril. 5. Iron deficiency anemia. Continue Icar C. 6. Left shoulder pain and muscle spasms. Negative for fracture. Continue Robaxin and she can have p.r.n. morphine. 7. Recent urinary tract infection on Macrobid. That has been continued. 8. Depression. Home medications continued. 9. Asthma. Symbicort continued and albuterol. 10. Deep venous thrombosis prophylaxis. Lovenox. Dictated by GEORGETTE Moya for Silverio Melgoza MD cc: GEORGETTE Moya MD
[2019-07-25] MEDS ORDERED: LAMICTAL PO SCH (21:00)
[2019-07-25] MEDS ORDERED: MINIPRESS PO SCH (21:00)
[2019-07-25] MEDS ORDERED: RESTORIL PO SCH (21:00)
[2019-07-25] MEDS ORDERED: PRINIVIL PO SCH (21:00)
[2019-07-25] MEDS ORDERED: KLONOPIN PO SCH (21:00)
[2019-07-25] MEDS ORDERED: HUMULIN N SUBQ ONE (21:00)
[2019-07-25] MEDS: MACROBID PO SCH (21:14)
[2019-07-25] MEDS: CYMBALTA PO SCH (21:14)
[2019-07-25] MEDS: SYMBICORT 160/4.5 MICROGM INHALER INH SCH (22:54)
[2019-07-26] MEDS: NS 1,000 ML IV SCH ×2 (01:45→09:04)
[2019-07-26] MEDS: HUMULIN R SUBQ SCH ×3 (06:06→17:38)
[2019-07-26 06:10] LABS: AGAP 7; ALB/GLOB RATIO 1.5; ALBUMIN 3.4 g/dL (3.5-5.0); ALKALINE PHOSPHATASE 60 U/L (32-104); BUN 10 mg/dL (8-22); CALCIUM 7.8 mg/dL (8.8-10.2); CHLORIDE 102 mmol/L (98-107); COSMO 281; CREATININE 0.7 mg/dL (0.5-0.9); ESTIMATED GFR > 60; GLUCOSE 236 mg/dL (70-104); GOT 23 U/L (10-30); GPT 26 U/L (10-36); POTASSIUM 3.9 mmol/L (3.5-5.1); SODIUM 137 mmol/L (136-145); TCO2 28 mmol/L (25-35); TOTAL BILIRUBIN 0.18 mg/dL (0.20-1.00); TOTAL PROTEIN 5.7 g/dL (6.3-8.3)
[2019-07-26 06:11] LABS: BASO# 0.07 X1000 (0.0-0.2); EOS# 0.72 X1000 (0.0-0.7); EOS% 9.9 % (0.0-10.0); HEMATOCRIT 39.3 % (37.0-47.0); HEMOGLOBIN 12.5 g/dL (12.0-16.0); IMM GRAN# 0.03 X1000 (0.0-0.04); IMM GRAN% 0.4 % (0.0-0.5); LYMPH# 3.37 X1000 (1.2-3.4); LYMPH% 46.5 % (20.5-51.1); MCHC 31.8 g/dL (33-37); MCV 94.5 FL (81-99); MONO# 0.41 X1000 (0.11-0.59); MONO% 5.7 % (1.7-9.3); MPV 10.6 FL (7.4-10.4); NEUT# 2.64 X1000 (1.4-6.5); NEUT% 36.5 % (42.2-75.2); PLT 255 X1000 (130-400); RBC 4.16 XMIL (4.2-5.4); WBC 7.24 X1000 (4.8-10.8)
[2019-07-26] MEDS ORDERED: SYNTHROID PO SCH ×2 (07:00)
[2019-07-26] MEDS: SYMBICORT 160/4.5 MICROGM INHALER INH SCH (07:53)
[2019-07-26] MEDS ORDERED: VICON-C PO SCH (09:00)
[2019-07-26] MEDS ORDERED: LANTUS INSULIN SUBQ SCH (09:00)
[2019-07-26] MEDS ORDERED: VITAMIN D PO SCH (09:00)
[2019-07-26] MEDS ORDERED: VITAMIN C PO SCH (09:00)
[2019-07-26] MEDS ORDERED: ICAR-C PO SCH (09:00)
[2019-07-26] MEDS: MORPHINE IV PRN ×2 (09:02→13:27)
[2019-07-26] MEDS: CYMBALTA PO SCH (09:03)
[2019-07-26] MEDS: MACROBID PO SCH (09:03)
[2019-07-26 15:49] VITALS: BP 127/81
[2019-07-26] MEDS ORDERED: LIPITOR PO SCH (21:00)
--- NOTE | 2019-07-27 06:13 | DISCHARGE SUMMARY ---
ADMISSION DATE: 07/25/2019 DISCHARGE DATE: 07/26/2019 ADMISSION DIAGNOSES: 1. Mild HONK or diabetic ketoacidosis versus uncontrolled diabetes mellitus type 2. 2. Intractable nausea and vomiting resolved. 3. Hypothyroidism appears to be uncontrolled, but is followed by Endocrinology in [place]. 4. Hypertension. 5. Iron deficiency anemia. 6. Left shoulder pain with muscle spasm secondary to a fall 3 weeks ago. 7. Recent urinary tract infection. 8. Depression. 9. Asthma. CONSULTATIONS: None. SURGERIES AND PROCEDURES: None. HOSPITAL COURSE: Ms. Ninfa Valadez is a 48-year-old female with a medical history of uncontrolled diabetes mellitus type 2, also uncontrolled hypothyroidism with concern for possible noncompliance with medication, although this is denied. She presented to the emergency department with complaints of intractable nausea and vomiting that had started the morning of admission. She denied any polyuria, polydipsia, polyphagia, fever, or chills, but was found to have a blood glucose level of 548 and a lactate of 4.3. Urine was positive for ketones and negative for acetone. ABGs: A pH was normal at 7.36. The anion gap was 19. She was treated with IV insulin and IV fluids as well. She was transferred to [facility]. It was also noted that she had complaints of numbness and tingling in the left scapular area. She had some fine motor tremors of the left hand. Apparently, it began 3 weeks ago after she fell in her shower. Ten days prior to this admission, she went to [place] where she was diagnosed with muscle sprain and given Flexeril. Imaging here reveals that there is a degree of spinal stenosis. Blood glucose levels improved. She was titrated off the insulin drip overnight, and started on a sliding scale insulin. Currently, vitals are stable. Labs are stable. She is going to be discharged home. DISCHARGE VITAL SIGNS: Temperature 97.5 degrees, heart rate 86, respiratory rate 12, blood pressure 114/74, and O2 saturation 97% on room air. DISCHARGE VITAL SIGNS: White blood cell count 7000, hemoglobin 12, hematocrit 39, and platelet count 255,000. Sodium 137, potassium 3.9, BUN 10, creatinine 0.7, glucose 184, and anion gap is back down to 7. TSH 86, free T4 is 0.23. Bilirubin 0.18. AST 23 and ALT 26. MICROBIOLOGY: Urine no growth. IMAGING: On 07/25/2019, chest x-ray negative for acute findings. Head and cervical spine CT: Head was negative for acute findings. Cervical spine showed lower cervical moderate spinal stenosis. Scapula x-ray on the left negative for any fractures. Thoracic spine x-ray negative exam. EKG with sinus tachycardia rate of 117. DISCHARGE MEDICATIONS: New medications include: 1. [place] 5 1 tablet p.o. every 6 hours p.r.n. 2. Robaxin 500 mg p.o. every 6 hours p.r.n. Home medications include: 1. Klonopin 1 mg p.o. nightly. 2. Lisinopril 20 mg p.o. nightly. 3. Restoril 15 mg p.o. nightly. 4. Adrenoid capsule 1 tablet p.o. with supper. 5. Black Cohosh 540 mg once p.o. daily. 6. Carbonyl iron 60 mg p.o. daily. 7. Cinnamon bark 500 mg p.o. with supper. 8. Cymbalta 60 mg p.o. twice daily. 9. Glimepiride 2 mg p.o. nightly. 10. Lamictal 100 mg p.o. nightly. 11. Lantus 80 units subcutaneous daily. 12. Lipitor 40 mg p.o. daily. 13. Macrobid 100 mg p.o. twice daily. 14. Mag-Ox 2 tabs of 133 mg p.o. twice daily. 15. Multivitamin 2 p.o. with breakfast. 16. Insulin Aspart 30 units before meals t.i.d. 17. Prazosin 1 mg p.o. nightly. 18. Albuterol sulfate 8.5 g 2 puffs inhaled every 8 hours p.r.n. 19. Symbicort 160/4.5 mcg 1 to 2 puffs inhaled twice daily. 20. Tirosint which is levothyroxine sodium 325 mg p.o. daily and on Sundays is 350 mcg. 21. Vitamin B complex once daily. 22. Vitamin C 200 mg p.o. daily. 23. Vitamin D3 88579 units p.o. daily. DISCHARGE DIET: Diabetic. DISCHARGE ACTIVITY: As tolerated. DISCHARGE INSTRUCTIONS: If her condition changes, contact physician and/or return to the emergency department. Changes may include, but not limited to shortness of breath, increased fatigue, excessive bleeding, unexplained weight loss or gain, unmanageable pain, signs or symptoms of infection. Please notify your physician for any of the following. Blood glucose remaining greater than 240 mg/dL for 2 days in a row, you have moderate or large amount of ketones in urine. You have a fever, you are unable to eat or drink, you are vomiting more than 2 hours. You have a high reading on your monitor, and you are taking insulin, you have chest pain, shortness of breath, or unable to talk, you have extreme thirst, dry mouth or rapid breathing. General instructions include keep all followup appointments. Take all prescribed medications as directed. Drink enough water to keep urine clear and pale yellow. Monitor fingersticks as instructed. Do not exercise if your blood glucose is high, and you have ketones in your urine. Return to the emergency department immediately for any new or worsening symptoms. PHYSICIAN FOLLOWUP: Lashay Mann and [facility] that is located in [place]. DISCHARGE DISPOSITION: Home. Dictated by GEORGETTE Moya for Alfonso Vilchis MD Addendum: Patient seen and examined by myself. Agree with GEORGETTE note. It reflects my assessment and plan. Patient is being discharged in stable condition. Will be seen by PCP in a week. cc: GEORGETTE Moya MD [facility]
== END 2019-07-26 18:48 | disposition home or self-care (01) | DRG 638 ==
LOC: ED 08:53 → 2N 08:54 → SUATTDRO 08:54
PROVIDERS: ATTEND Internal Medicine